=== PATIENT | male | born 1950 ===

== ENCOUNTER 2020-01-20 11:41 | Inpatient (IN) | payer MEDICARE, BC ==
[2020-01-20 19:12] VITALS: BP 128/74
[2020-01-21] MEDS: Potassium Chloride 10 mEq ER Tab PO SCH (10:52)
[2020-01-21] MEDS: Amoxicillin/Clavulanat 875/125 Tab PO SCH ×2 (10:52→16:44)
[2020-01-21] MEDS: Oxybutynin Chloride 5 mg ER Tab PO SCH (10:52)
--- NOTE | 2020-01-21 13:36 | History & Physical ---
ADMIT DATE: CHIEF COMPLAINT: Agitation. HISTORY OF PRESENT ILLNESS: We have a 69-year-old male with [place], history of DVT, PE, who is admitted for agitation. The patient is on anticoagulants for history of DVT and pulmonary embolism. The patient denies any chest pain, shortness of breath or nausea, vomiting, abdominal pain, diarrhea. PAST MEDICAL HISTORY: 1. Miroslava. 2. Pulmonary embolism/DVT. MEDICATIONS: List reviewed. ALLERGIES: None. SOCIAL HISTORY: Tobacco, IV drugs, ETOH negative. PHYSICAL EXAMINATION: VITAL SIGNS: Temperature is 98.6, pulse 70, respirations 20, blood pressure 128/74. HEENT: Normocephalic, atraumatic head exam. NECK: Supple. CARDIOVASCULAR: Regular rate and rhythm. LUNGS: Decreased breath sounds. ABDOMEN: Soft, nontender. EXTREMITIES: No edema, cyanosis, or clubbing. CN 2-12 grossly intact ASSESSMENT AND PLAN: 1. Miroslava's disease. 2. History of pulmonary embolism and deep venous thrombosis. 3. Agitation. The patient will continue with Xarelto 20 mg p.o. daily. We will get CBC, CMP, COVID testing. JOB# [id number] RUTHIE
[2020-01-21 15:00] LABS: HEMATOCRIT 42.4 % (36-54); HEMOGLOBIN 14.5 g/dL (14.0-18.0); MEAN CORPUSCULAR HEMOGLOBIN 30 pg (27-31); MEAN CORPUSCULAR HGB CONC 34 % (32-36); MEAN CORPUSCULAR VOLUME 86 fL (79.0-98.0); PLATELET COUNT 287 K/uL (130-430); RED BLOOD COUNT 4.91 MIL/uL (4.2-6.2); RED CELL DISTRIBUTION WIDTH 14.3 % (9.0-15.0); WHITE BLOOD COUNT 6.7 K/uL (4.8-10.8)
[2020-01-21 15:01] LABS: % NEUTROPHILS 63.3 % (40-70); BASOPHILS # (AUTO) 0.1 K/uL (0.0-0.2); BASOPHILS % (AUTO) 0.9 % (0.0-2.0); EOSINOPHILS # (AUTO) 0.1 K/uL (0.0-0.4); EOSINOPHILS % (AUTO) 1.2 % (0-4); LYMPHOCYTES # (AUTO) 1.5 K/uL (1.0-5.5); LYMPHOCYTES % (AUTO) 22.3 % (20.5-51.5); MONOCYTES # (AUTO) 0.8 K/uL (0.0-1.0); MONOCYTES % (AUTO) 12.3 % (1.7-9.3); NEUTROPHILS # (AUTO) 4.2 K/uL (1.8-7.7)
[2020-01-21 19:36] LABS: CALCIUM SERUM 8.8 mg/dL (8.4-10.2); CREATININE - SERUM 1.18 mg/dL (0.70-1.30); POTASSIUM SERUM 3.3 mmol/L (3.5-5.1); TOTAL PROTEIN,SERUM 7.3 g/dL (6.4-8.3)
[2020-01-21 19:37] LABS: BILIRUBIN,TOTAL 0.3 mg/dL (0.0-1.0)
[2020-01-21 22:07] LABS: CHOLESTEROL 206 mg/dL (<200); LDL CHOLESTEROL 133 mg/dL (0-129); TRIGLYCERIDES 112 mg/dL (30-150)
--- NOTE | 2020-01-21 22:46 | Psychiatric Evaluation ---
DATE OF SERVICE: 01/20/2020 IDENTIFYING INFORMATION: The patient is a 69-year-old male. CHIEF COMPLAINT: "I don't know." JUSTIFICATION FOR ADMISSION: The patient was admitted on a hold with danger to self. HISTORY OF PRESENT ILLNESS: The patient apparently was yelling, he was uncooperative, he was hitting staff. He was delusional, unable to make safe plan for self-care. He was believing that his is cristi and not a criminal. When I talked to the patient, he was a poor historian. He believes his name is Ryder Angelo. When asked how many years he is, he said "Several hundred years." The patient according to records was throwing items, he was throwing things, acting very dangerous. He pulled his IV pole, attacked staff members. The patient was not a very good historian. When I tried to ask him about these things, he did not know where he was. He believed that he is in [facility]. PAST PSYCHIATRIC HISTORY: According to the records, the patient is with a history of dementia, Erie's disease, unsteady gait. The patient's called 911 because of increased agitation and acting dangerous at home. The patient was a poor historian, unable to give much information, did not know the date, where he is, why he is here. PAST PSYCHIATRIC HISTORY: Asthma described before, dementia, delusions. He denies prior suicide attempts. He denies ever wanting to harm himself, he was a poor historian. MEDICAL HISTORY: Erie's disease. ALLERGIES: THE PATIENT IS ALLERGIC TO SEROQUEL. MEDICATIONS: The patient is on olanzapine 5 mg twice a day. He is on Xarelto, potassium, oxybutynin, ibuprofen, gabapentin 300 mg 3 times a day, Lasix, Calciferol, amoxicillin, deferred to the medical doctor rest of his medical condition. SOCIAL HISTORY: The patient was unable to tell me much about his family history, unable to tell me his age, the date, where he is, why he is here for anything about whether he uses alcohol or drugs or education. MENTAL STATUS EXAMINATION: The patient is appropriately dressed, not well groomed. He was alert. He was trying to be cooperative; however, he is delusional. He believes he is 89 years old and that he is Ryder Angelo. He could not tell me the date. He believes he is in [facility]. The patient reports hearing voices all the time and they tell him to say what to say and do, but denies that he wants to harm himself, but they tell him to harm himself. He reports he sleeps well. He eats well; however, he is not a good historian. He denies any homicidal ideation; however, he was throwing items, lifting items at the hospital and at home and called 911. He was unable to tell me the president practicing urologist. He is demented, confused. Long-term memory is poor, cannot tell me his age. Short-term memory is poor. He is not sure of the events that led to this admission. Concentration is poor, unable to answer questions, depressed. Insight about his illness is poor, does not realize what problem he has. Judgment is poor with his acting out behavior. IMPRESSION: Dementia with behavior disturbances; psychosis, not otherwise specified, rule out bipolar disorder. MEDICAL DIAGNOSES: Erie disease, hypertension, benign prostatic hypertrophy. ASSETS: He is accepting treatment. Negative poor coping skills. INITIAL TREATMENT PLAN: The patient will be continued with olanzapine 5 mg twice a day. We will do group therapy, milieu therapy, and individual therapy. ESTIMATED LENGTH OF STAY: 3-7 days. DISCHARGE CRITERIA: Decrease agitation, no longer aggressive. After discharge outpatient treatment. JOB# [id number] RUTHIE
[2020-01-22 08:07] LABS: A1C 5.3 % (4.8-5.6)
[2020-01-22] MEDS: Potassium Chloride 10 mEq ER Tab PO SCH (09:07)
[2020-01-22] MEDS: Amoxicillin/Clavulanat 875/125 Tab PO SCH ×3 (09:07→16:48)
[2020-01-22] MEDS: Oxybutynin Chloride 5 mg ER Tab PO SCH (09:08)
[2020-01-22] MEDS ORDERED: OLANZAPINE PO SCH (10:00)
--- NOTE | 2020-01-22 14:00 | Progress Notes ---
DATE: 01/22/2020 Case was discussed with staff of the patient, reviewed records. The patient continues to be confused, delusional, not making sense. He believes he is 100s of years old that he is Ryder Angelo, unpredictable, impulsive. He believes his is a mafia and criminal. He continues to be unable to make safe plan for self-care. No side effects with the medication, no sedation, no nausea, no extrapyramidal symptoms. I will be increasing his olanzapine to 7.5 mg twice a day with the help with his confusion, paranoia, delusional behavior, aggressive behavior. We will continue outpatient group therapy, milieu therapy, adjust medication as needed. [facility]# [id number]
--- NOTE | 2020-01-22 14:17 | Internal Medicine Prog Note ---
Internal Medicine Subjective - Subjective Service Date: 01/22/20 Patient seen and examined:: without staff Patient is:: awake Per staff patient has:: no adverse event, no episodes of fall Internal Medicine Objective - Results Result Diagrams: 01/21/20 13:15 01/21/20 13:15 Recent Labs: Laboratory Last Values WBC 6.7 K/uL (4.8-10.8) 01/21/20 13:15 RBC 4.91 MIL/uL (4.2-6.2) 01/21/20 13:15 Hgb 14.5 g/dL (14.0-18.0) 01/21/20 13:15 Hct 42.4 % (36-54) 01/21/20 13:15 MCV 86 fL (79.0-98.0) 01/21/20 13:15 MCH 30 pg (27-31) 01/21/20 13:15 MCHC 34 % (32-36) 01/21/20 13:15 RDW 14.3 % (9.0-15.0) 01/21/20 13:15 Plt Count 287 K/uL (130-430) 01/21/20 13:15 MPV 9.0 fl (7.4-10.4) 01/21/20 13:15 Neut % (Auto) 63.3 % (40-70) 01/21/20 13:15 Lymph % (Auto) 22.3 % (20.5-51.5) 01/21/20 13:15 Bureau % (Auto) 12.3 % (1.7-9.3) H 01/21/20 13:15 Eos % (Auto) 1.2 % (0-4) 01/21/20 13:15 Baso % (Auto) 0.9 % (0.0-2.0) 01/21/20 13:15 Neut # (Auto) 4.2 K/uL (1.8-7.7) 01/21/20 13:15 Lymph # (Auto) 1.5 K/uL (1.0-5.5) 01/21/20 13:15 Bureau # (Auto) 0.8 K/uL (0.0-1.0) 01/21/20 13:15 Eos # (Auto) 0.1 K/uL (0.0-0.4) 01/21/20 13:15 Baso # (Auto) 0.1 K/uL (0.0-0.2) 01/21/20 13:15 Sodium 137 mmol/L (136-145) 01/21/20 13:15 Potassium 3.3 mmol/L (3.5-5.1) L 01/21/20 13:15 Chloride 108 mmol/L (98-107) H 01/21/20 13:15 Carbon Dioxide 26 mmol/L (23-29) 01/21/20 13:15 Anion Gap 6 (5-15) 01/21/20 13:15 BUN 26 mg/dL (8-21) H 01/21/20 13:15 Creatinine 1.18 mg/dL (0.70-1.30) 01/21/20 13:15 Glucose 93 mg/dL (70-99) 01/21/20 13:15 Hemoglobin A1c 5.3 % (4.8-5.6) 01/21/20 13:15 Calcium 8.8 mg/dL (8.4-10.2) 01/21/20 13:15 Total Bilirubin 0.3 mg/dL (0.0-1.0) 01/21/20 13:15 AST 27 U/L (10-37) 01/21/20 13:15 ALT 23 U/L (12-78) 01/21/20 13:15 Alkaline Phosphatase 95 U/L (46-116) 01/21/20 13:15 Total Protein 7.3 g/dL (6.4-8.3) 01/21/20 13:15 Albumin 3.2 g/dL (3.4-5.0) L 01/21/20 13:15 Triglycerides 112 mg/dL (30-150) 01/21/20 13:15 Cholesterol 206 mg/dL (<200) H 01/21/20 13:15 LDL Cholesterol 133 mg/dL (0-129) H 01/21/20 13:15 HDL Cholesterol 57 mg/dL (>45) 01/21/20 13:15 - Physical Exam Vitals and I&O: Vital Signs Temp 97 F 01/21/20 20:00 Pulse 65 01/21/20 20:00 Resp 19 01/21/20 20:00 BP 105/60 01/21/20 20:00 Pulse Ox 94 01/21/20 20:00 Intake & Output 01/21/20 01/22/20 01/22/20 18:59 06:59 18:59 Intake Total 680 120 Balance 680 120 Intake: Oral 680 120 Other: # Voids 3 3 # Bowel Movements 0 Active Medications: Current Medications Amoxicillin/Clavulanate Potassium (Augmentin 875-125mg) 1 tab PO BID [facility] Stop: 01/25/20 08:59 Last Admin: 01/22/20 09:07 Dose: 1 tab Cholecalciferol (Vitamin D3) 1,000 iu PO DAILY [facility] Stop: 03/21/20 08:59 Last Admin: 01/22/20 09:07 Dose: 1,000 iu Furosemide (Lasix) 20 mg PO DAILY [facility] Stop: 03/21/20 08:59 Last Admin: 01/22/20 09:22 Dose: Not Given Gabapentin (Neurontin) 300 mg PO TID [facility] Stop: 03/21/20 08:59 Last Admin: 01/22/20 13:45 Dose: Not Given Ibuprofen (Motrin) 600 mg PO Q4H PRN PRN Reason: Pain (Severe 7-10) Stop: 03/20/20 21:39 Lorazepam (Ativan) 2 mg PO BID PRN; Protocol PRN Reason: Agitation Stop: 02/19/20 21:39 Olanzapine 5 mg/ Olanzapine 2. (5 mg) 7.5 mg PO BID [facility] Stop: 03/22/20 09:59 Oxybutynin Chloride (Ditropan Xl) 10 mg PO DAILY [facility] Stop: 03/21/20 08:59 Last Admin: 01/22/20 09:08 Dose: 10 mg Potassium Chloride (Klor-Con) 10 meq PO DAILY [facility] Stop: 03/21/20 08:59 Last Admin: 01/22/20 09:07 Dose: 10 meq Rivaroxaban (Xarelto) 20 mg PO DAILY [facility] Stop: 03/21/20 08:59 Last Admin: 01/22/20 09:07 Dose: 20 mg General: weak HEENT: NC/AT, PERRLA Neck: Supple Lungs: CTAB Cardiovascular: RRR, Normal S1, Normal S2 Abdomen: soft Extremities: clear Internal Medicine Assmt/Plan - Assessment Assessment: 1. [place]'s 2. HTN 3. Hx of P.E. and DVT - Plan Plan: continue xeralto 20 mg po daily d/w r.n. reviewed complete medical records
[2020-01-23] MEDS: Amoxicillin/Clavulanat 875/125 Tab PO SCH ×2 (08:44→16:04)
[2020-01-23] MEDS: Potassium Chloride 10 mEq ER Tab PO SCH (08:45)
[2020-01-23] MEDS: Oxybutynin Chloride 5 mg ER Tab PO SCH (08:45)
--- NOTE | 2020-01-23 11:23 | Progress Notes ---
DATE: 01/23/2020 SUBJECTIVE: Case was discussed with staff of the patient, reviewed records. The patient has been at times refusing medication. Continues to have poor insight, continues to be unpredictable, impulsive, needing redirection. Continues to have poor insight. The patient has been on Zyprexa and I increased the dose yesterday to 7.5 mg twice a day. The patient continues to be psychotic, unpredictable, impulsive, needing redirection. No side effects with the medication, no sedation, no nausea, no extrapyramidal symptoms. We will continue outpatient group therapy, milieu therapy, and adjust medication as needed. JOB# [id number]
[2020-01-24] MEDS: Amoxicillin/Clavulanat 875/125 Tab PO SCH ×2 (08:33→16:34)
[2020-01-24] MEDS: Potassium Chloride 10 mEq ER Tab PO SCH (08:34)
[2020-01-24] MEDS: Oxybutynin Chloride 5 mg ER Tab PO SCH (08:34)
--- NOTE | 2020-01-24 14:29 | Internal Medicine Prog Note ---
Internal Medicine Subjective - Subjective Service Date: 01/24/20 Patient seen and examined:: without staff Patient is:: awake Per staff patient has:: no adverse event, no episodes of fall Internal Medicine Objective - Results Result Diagrams: 01/21/20 13:15 01/21/20 13:15 Recent Labs: Laboratory Last Values WBC 6.7 K/uL (4.8-10.8) 01/21/20 13:15 RBC 4.91 MIL/uL (4.2-6.2) 01/21/20 13:15 Hgb 14.5 g/dL (14.0-18.0) 01/21/20 13:15 Hct 42.4 % (36-54) 01/21/20 13:15 MCV 86 fL (79.0-98.0) 01/21/20 13:15 MCH 30 pg (27-31) 01/21/20 13:15 MCHC 34 % (32-36) 01/21/20 13:15 RDW 14.3 % (9.0-15.0) 01/21/20 13:15 Plt Count 287 K/uL (130-430) 01/21/20 13:15 MPV 9.0 fl (7.4-10.4) 01/21/20 13:15 Neut % (Auto) 63.3 % (40-70) 01/21/20 13:15 Lymph % (Auto) 22.3 % (20.5-51.5) 01/21/20 13:15 [place] % (Auto) 12.3 % (1.7-9.3) H 01/21/20 13:15 Eos % (Auto) 1.2 % (0-4) 01/21/20 13:15 Baso % (Auto) 0.9 % (0.0-2.0) 01/21/20 13:15 Neut # (Auto) 4.2 K/uL (1.8-7.7) 01/21/20 13:15 Lymph # (Auto) 1.5 K/uL (1.0-5.5) 01/21/20 13:15 [place] # (Auto) 0.8 K/uL (0.0-1.0) 01/21/20 13:15 Eos # (Auto) 0.1 K/uL (0.0-0.4) 01/21/20 13:15 Baso # (Auto) 0.1 K/uL (0.0-0.2) 01/21/20 13:15 Sodium 137 mmol/L (136-145) 01/21/20 13:15 Potassium 3.3 mmol/L (3.5-5.1) L 01/21/20 13:15 Chloride 108 mmol/L (98-107) H 01/21/20 13:15 Carbon Dioxide 26 mmol/L (23-29) 01/21/20 13:15 Anion Gap 6 (5-15) 01/21/20 13:15 BUN 26 mg/dL (8-21) H 01/21/20 13:15 Creatinine 1.18 mg/dL (0.70-1.30) 01/21/20 13:15 Glucose 93 mg/dL (70-99) 01/21/20 13:15 Hemoglobin A1c 5.3 % (4.8-5.6) 01/21/20 13:15 Calcium 8.8 mg/dL (8.4-10.2) 01/21/20 13:15 Total Bilirubin 0.3 mg/dL (0.0-1.0) 01/21/20 13:15 AST 27 U/L (10-37) 01/21/20 13:15 ALT 23 U/L (12-78) 01/21/20 13:15 Alkaline Phosphatase 95 U/L (46-116) 01/21/20 13:15 Total Protein 7.3 g/dL (6.4-8.3) 01/21/20 13:15 Albumin 3.2 g/dL (3.4-5.0) L 01/21/20 13:15 Triglycerides 112 mg/dL (30-150) 01/21/20 13:15 Cholesterol 206 mg/dL (<200) H 01/21/20 13:15 LDL Cholesterol 133 mg/dL (0-129) H 01/21/20 13:15 HDL Cholesterol 57 mg/dL (>45) 01/21/20 13:15 - Physical Exam Vitals and I&O: Vital Signs Temp 97 F 01/24/20 05:58 Pulse 62 01/24/20 05:58 Resp 16 01/24/20 08:00 BP 153/65 01/24/20 08:35 Pulse Ox 95 01/24/20 05:58 Intake & Output 01/23/20 01/24/20 01/24/20 18:59 06:59 18:59 Intake Total 1200 240 Balance 1200 240 Intake: Oral 1200 240 Other: # Voids 1 # Bowel Movements 1 Active Medications: Current Medications Amoxicillin/Clavulanate Potassium (Augmentin 875-125mg) 1 tab PO BID [facility] Stop: 01/25/20 08:59 Last Admin: 01/24/20 08:33 Dose: 1 tab Cholecalciferol (Vitamin D3) 1,000 iu PO DAILY [facility] Stop: 03/21/20 08:59 Last Admin: 01/24/20 08:33 Dose: 1,000 iu Furosemide (Lasix) 20 mg PO DAILY [facility] Stop: 03/21/20 08:59 Last Admin: 01/24/20 08:35 Dose: 20 mg Gabapentin (Neurontin) 300 mg PO TID [facility] Stop: 03/21/20 08:59 Last Admin: 01/24/20 08:35 Dose: 300 mg Ibuprofen (Motrin) 600 mg PO Q4H PRN PRN Reason: Pain (Severe 7-10) Stop: 03/20/20 21:39 Lorazepam 1 mg/ Lorazepam 0.5 (mg) 1.5 mg PO BID PRN PRN Reason: AGITATION Stop: 03/23/20 11:39 Olanzapine 5 mg/ Olanzapine 2. (5 mg) 7.5 mg PO BID [facility] Stop: 03/22/20 09:59 Last Admin: 01/24/20 08:34 Dose: 7.5 mg Oxybutynin Chloride (Ditropan Xl) 10 mg PO DAILY [facility] Stop: 03/21/20 08:59 Last Admin: 01/24/20 08:34 Dose: 10 mg Potassium Chloride (Klor-Con) 10 meq PO DAILY [facility] Stop: 03/21/20 08:59 Last Admin: 01/24/20 08:34 Dose: 10 meq Rivaroxaban (Xarelto) 20 mg PO DAILY [facility] Stop: 03/21/20 08:59 Last Admin: 01/24/20 08:34 Dose: 20 mg General: weak HEENT: NC/AT, PERRLA Neck: Supple Lungs: CTAB Cardiovascular: RRR, Normal S1, Normal S2 Abdomen: soft Extremities: clear Neurological: no change Internal Medicine Assmt/Plan - Assessment Assessment: 1. [place]'s 2. HTN 3. Hx of P.E. and DVT - Plan Plan: continue xeralto 20 mg po daily d/w r.n. reviewed complete medical records
--- NOTE | 2020-01-24 16:50 | Progress Notes ---
DATE: 01/24/2020 Case was discussed with staff of the patient, reviewed records. The patient continues to stay in bed, continues to be delusional. Continues to have poor insight, confused, unable to make safe plan for his self-care. He has been compliant with the medication with no side effects, no sedation, no nausea, no extrapyramidal symptoms. I did increase his olanzapine to 7.5 mg twice a day with no side effects and he is still unable to make safe plan for his self-care. _ he believes he is Ryder Angelo. He is hundreds of years old. We will continue outpatient group therapy, milieu therapy, and adjust the medications as needed. JOB# [id number] RUTHIE
[2020-01-25] MEDS: Potassium Chloride 10 mEq ER Tab PO SCH (09:43)
[2020-01-25] MEDS: Oxybutynin Chloride 5 mg ER Tab PO SCH (09:43)
--- NOTE | 2020-01-25 13:48 | Progress Notes ---
DATE: 01/25/2020 Covering for Jina Toledo MD SUBJECTIVE: The patient was interviewed. Case was discussed with staff. Chart and records were reviewed. Per the staff, the patient has been gradually improving, less depressed, and no behavioral issues. The patient, however, does stay in bed most of the day. He continues to have thought disorganization. Also, appears to be with poor self-care and needs significant prompting. The patient this afternoon was lying in bed, sleeping, did not want to awake for the interview. I attempted to wake the patient for the interview, but he would quickly fall back asleep and not want to cooperate. MENTAL STATUS EXAMINATION: The patient is sleeping in the hospital bed, turned away from this provider. Awakes to his name, but quickly falls back asleep. Speech remained selectively mute, otherwise unable to assess due to his poor cooperation. ASSESSMENT AND PLAN: We will continue the patient's acute psychiatric hospitalization. We will continue his current medications as prescribed. We will monitor for side effects and for behaviors and improvement. We will also encourage the patient to verbalize his needs and participate in group and milieu therapy. JOB# [id number]
[2020-01-26] MEDS: Oxybutynin Chloride 5 mg ER Tab PO SCH (09:05)
[2020-01-26] MEDS: Potassium Chloride 10 mEq ER Tab PO SCH (09:06)
[2020-01-27] MEDS: Oxybutynin Chloride 5 mg ER Tab PO SCH (08:26)
[2020-01-27] MEDS: Potassium Chloride 10 mEq ER Tab PO SCH (08:26)
--- NOTE | 2020-01-27 23:01 | Psych Progress Note ---
Psych Progress Note - Intro Date of Progress Note: 01/27/20 - Assessment Assessment: patient more awake today seen in dayroom. able to state his name, , where he is "Billy!" and wifes name. He is not making bizarre comments. tolerating Zyprexa well with no side effects. hygiene improving. - Vitals, I&O Vitals: Vital Signs - 24 hr 01/27/20 01/27/20 01/27/20 06:17 08:27 15:06 Temp 97.1 F 97.0 F HR 59 78 RR 19 20 BP 122/74 122/74 127/91 O2 Sat % 95 94 01/27/20 01/27/20 19:52 20:50 Temp 97.6 F HR 65 RR 20 18 BP 107/62 O2 Sat % 95 - Objective Psych General Appearance: Report: No acute distress Psych Behavior: Report: Alert Psych Speech: Report: Mumbled Psych Mood: Report: Euthymic Psych Affect: Report: Blunted Psych Insight: Report: Impaired Psych Judgement: Report: Impaired - Plan Plan: cont meds - Review of Relevant Data Review of Relevant Data: I have reviewed the following items and time anneliese (where applicable) has been applied. - Medications Current Medications: Current Medications Cholecalciferol (Vitamin D3) 1,000 iu PO DAILY [facility] Stop: 03/21/20 08:59 Last Admin: 01/27/20 08:25 Dose: 1,000 iu Furosemide (Lasix) 20 mg PO DAILY [facility] Stop: 03/21/20 08:59 Last Admin: 01/27/20 08:27 Dose: 20 mg Gabapentin (Neurontin) 100 mg PO TID [facility] Stop: 03/26/20 20:59 Last Admin: 01/27/20 20:58 Dose: 100 mg Ibuprofen (Motrin) 600 mg PO Q4H PRN PRN Reason: Pain (Severe 7-10) Stop: 03/20/20 21:39 Lorazepam 1 mg/ Lorazepam 0.5 (mg) 1.5 mg PO BID PRN PRN Reason: AGITATION Stop: 03/23/20 11:39 Olanzapine (Zyprexa) 10 mg PO HS [facility] Stop: 03/27/20 20:59 Last Admin: 01/27/20 20:58 Dose: 10 mg Oxybutynin Chloride (Ditropan Xl) 10 mg PO DAILY [facility] Stop: 03/21/20 08:59 Last Admin: 01/27/20 08:26 Dose: 10 mg Potassium Chloride (Klor-Con) 10 meq PO DAILY [facility] Stop: 03/21/20 08:59 Last Admin: 01/27/20 08:26 Dose: 10 meq Rivaroxaban (Xarelto) 20 mg PO DAILY [facility] Stop: 03/21/20 08:59 Last Admin: 01/27/20 08:25 Dose: 20 mg
--- NOTE | 2020-01-27 23:01 | Psych Progress Note ---
Psych Progress Note - Intro Date of Progress Note: 01/26/20 - Assessment Assessment: spoke with patient's she is concerned of patient's mental status reports his confusion is not improving and he is tired. per nursing staff, patient has been sleeping most of the day but when awake needs prompting for self care and also making bizarre statements of wanting to go surfing. patietn did not participate in interview wanted to sleep. - Vitals, I&O Vitals: Vital Signs - 24 hr 01/27/20 01/27/20 01/27/20 06:17 08:27 15:06 Temp 97.1 F 97.0 F HR 59 78 RR 19 20 BP 122/74 122/74 127/91 O2 Sat % 95 94 01/27/20 01/27/20 19:52 20:50 Temp 97.6 F HR 65 RR 20 18 BP 107/62 O2 Sat % 95 - Objective Psych General Appearance: Report: Disheveled, No eye-contact Psych Behavior: Report: Uncooperative Psych Mood: Report: Anxious Psych Affect: Report: Blunted Psych Cognition: Report: Confused Psych Insight: Report: Impaired Psych Judgement: Report: Impaired - Plan Plan: will consolidate Zyprexa dosing to bedtime to help with daytime sedation. - Review of Relevant Data Review of Relevant Data: I have reviewed the following items and time anneliese (where applicable) has been applied. - Medications Current Medications: Current Medications Cholecalciferol (Vitamin D3) 1,000 iu PO DAILY [facility] Stop: 03/21/20 08:59 Last Admin: 01/27/20 08:25 Dose: 1,000 iu Furosemide (Lasix) 20 mg PO DAILY [facility] Stop: 03/21/20 08:59 Last Admin: 01/27/20 08:27 Dose: 20 mg Gabapentin (Neurontin) 100 mg PO TID [facility] Stop: 03/26/20 20:59 Last Admin: 01/27/20 20:58 Dose: 100 mg Ibuprofen (Motrin) 600 mg PO Q4H PRN PRN Reason: Pain (Severe 7-10) Stop: 03/20/20 21:39 Lorazepam 1 mg/ Lorazepam 0.5 (mg) 1.5 mg PO BID PRN PRN Reason: AGITATION Stop: 03/23/20 11:39 Olanzapine (Zyprexa) 10 mg PO HS [facility] Stop: 03/27/20 20:59 Last Admin: 01/27/20 20:58 Dose: 10 mg Oxybutynin Chloride (Ditropan Xl) 10 mg PO DAILY [facility] Stop: 03/21/20 08:59 Last Admin: 01/27/20 08:26 Dose: 10 mg Potassium Chloride (Klor-Con) 10 meq PO DAILY [facility] Stop: 03/21/20 08:59 Last Admin: 01/27/20 08:26 Dose: 10 meq Rivaroxaban (Xarelto) 20 mg PO DAILY [facility] Stop: 03/21/20 08:59 Last Admin: 01/27/20 08:25 Dose: 20 mg
[2020-01-28] MEDS: Potassium Chloride 10 mEq ER Tab PO SCH (08:14)
[2020-01-28] MEDS: Oxybutynin Chloride 5 mg ER Tab PO SCH (08:14)
--- NOTE | 2020-01-28 19:06 | Internal Medicine Prog Note ---
Internal Medicine Subjective - Subjective Service Date: 01/28/20 (Late entry) Patient seen and examined:: without staff (no fevers no cough no chest pain no sob) Patient is:: awake Per staff patient has:: no adverse event, no episodes of fall Internal Medicine Objective - Results Result Diagrams: 01/21/20 13:15 01/21/20 13:15 Recent Labs: Laboratory Last Values WBC 6.7 K/uL (4.8-10.8) 01/21/20 13:15 RBC 4.91 MIL/uL (4.2-6.2) 01/21/20 13:15 Hgb 14.5 g/dL (14.0-18.0) 01/21/20 13:15 Hct 42.4 % (36-54) 01/21/20 13:15 MCV 86 fL (79.0-98.0) 01/21/20 13:15 MCH 30 pg (27-31) 01/21/20 13:15 MCHC 34 % (32-36) 01/21/20 13:15 RDW 14.3 % (9.0-15.0) 01/21/20 13:15 Plt Count 287 K/uL (130-430) 01/21/20 13:15 MPV 9.0 fl (7.4-10.4) 01/21/20 13:15 Neut % (Auto) 63.3 % (40-70) 01/21/20 13:15 Lymph % (Auto) 22.3 % (20.5-51.5) 01/21/20 13:15 [place] % (Auto) 12.3 % (1.7-9.3) H 01/21/20 13:15 Eos % (Auto) 1.2 % (0-4) 01/21/20 13:15 Baso % (Auto) 0.9 % (0.0-2.0) 01/21/20 13:15 Neut # (Auto) 4.2 K/uL (1.8-7.7) 01/21/20 13:15 Lymph # (Auto) 1.5 K/uL (1.0-5.5) 01/21/20 13:15 [place] # (Auto) 0.8 K/uL (0.0-1.0) 01/21/20 13:15 Eos # (Auto) 0.1 K/uL (0.0-0.4) 01/21/20 13:15 Baso # (Auto) 0.1 K/uL (0.0-0.2) 01/21/20 13:15 Sodium 137 mmol/L (136-145) 01/21/20 13:15 Potassium 3.3 mmol/L (3.5-5.1) L 01/21/20 13:15 Chloride 108 mmol/L (98-107) H 01/21/20 13:15 Carbon Dioxide 26 mmol/L (23-29) 01/21/20 13:15 Anion Gap 6 (5-15) 01/21/20 13:15 BUN 26 mg/dL (8-21) H 01/21/20 13:15 Creatinine 1.18 mg/dL (0.70-1.30) 01/21/20 13:15 Glucose 93 mg/dL (70-99) 01/21/20 13:15 Hemoglobin A1c 5.3 % (4.8-5.6) 01/21/20 13:15 Calcium 8.8 mg/dL (8.4-10.2) 01/21/20 13:15 Total Bilirubin 0.3 mg/dL (0.0-1.0) 01/21/20 13:15 AST 27 U/L (10-37) 01/21/20 13:15 ALT 23 U/L (12-78) 01/21/20 13:15 Alkaline Phosphatase 95 U/L (46-116) 01/21/20 13:15 Total Protein 7.3 g/dL (6.4-8.3) 01/21/20 13:15 Albumin 3.2 g/dL (3.4-5.0) L 01/21/20 13:15 Triglycerides 112 mg/dL (30-150) 01/21/20 13:15 Cholesterol 206 mg/dL (<200) H 01/21/20 13:15 LDL Cholesterol 133 mg/dL (0-129) H 01/21/20 13:15 HDL Cholesterol 57 mg/dL (>45) 01/21/20 13:15 - Physical Exam Vitals and I&O: Vital Signs Temp 97.6 F 01/28/20 14:41 Pulse 64 01/28/20 14:41 Resp 20 01/28/20 14:41 BP 136/80 01/28/20 14:41 Pulse Ox 95 01/28/20 14:41 Intake & Output 01/28/20 01/28/20 01/29/20 06:59 18:59 06:59 Intake Total 240 Output Total 480 Balance -240 Intake: Oral 240 Output: Urine 480 Active Medications: Current Medications Cholecalciferol (Vitamin D3) 1,000 iu PO DAILY [facility] Stop: 03/21/20 08:59 Last Admin: 01/28/20 08:13 Dose: 1,000 iu Furosemide (Lasix) 20 mg PO DAILY [facility] Stop: 03/21/20 08:59 Last Admin: 01/28/20 08:13 Dose: 20 mg Gabapentin (Neurontin) 100 mg PO TID [facility] Stop: 03/26/20 20:59 Last Admin: 01/28/20 14:17 Dose: 100 mg Ibuprofen (Motrin) 600 mg PO Q4H PRN PRN Reason: Pain (Severe 7-10) Stop: 03/20/20 21:39 Lorazepam 1 mg/ Lorazepam 0.5 (mg) 1.5 mg PO BID PRN PRN Reason: AGITATION Stop: 03/23/20 11:39 Olanzapine (Zyprexa) 10 mg PO HS [facility] Stop: 03/27/20 20:59 Last Admin: 01/27/20 20:58 Dose: 10 mg Oxybutynin Chloride (Ditropan Xl) 10 mg PO DAILY [facility] Stop: 03/21/20 08:59 Last Admin: 01/28/20 08:14 Dose: 10 mg Potassium Chloride (Klor-Con) 10 meq PO DAILY [facility] Stop: 03/21/20 08:59 Last Admin: 01/28/20 08:14 Dose: 10 meq Rivaroxaban (Xarelto) 20 mg PO DAILY [facility] Stop: 03/21/20 08:59 Last Admin: 01/28/20 08:14 Dose: 20 mg General: weak HEENT: NC/AT, PERRLA Neck: Supple Lungs: CTAB Cardiovascular: RRR, Normal S1, Normal S2 Abdomen: soft Extremities: clear Neurological: no change Internal Medicine Assmt/Plan - Assessment Assessment: 1. [place] 2. HTN 3. Hx of P.E. and DVT - Plan Plan: continue xeralto 20 mg po daily d/w r.n. reviewed complete medical records Nutritional Asmnt/Malnutr-PDOC - Dietary Evaluation Malnutrition Findings (Please click <Entered> for more info): Nutritional Asmnt/Malnutrition Start: 01/26/20 12: 42 Text: Status: Complete Freq: Protocol: Document 01/26/20 12:42 MARLENYDEVI (Rec: 01/26/20 12:51 [email or web address]- [id number]) Nutritional Asmnt/Malnutrition Patient General Information Nutritional Screening Low Risk Diagnosis Psychosis Pertinent Medical Hx/Surgical Hx [place], Pulmonary embolism /DVT Subjective Information FNS providing patient with ~ 2300 kcal, 110gm protein; patient eating average 90% of meals, 2070 kcal, 99gm protein /day meeting 98% kcal, >100 protein goals. Tolerating current diet order with adequate intake. Current Diet Order/ Nutrition Support Regular Patient / S.O Not Indicated Pertinent Medications Vitamin D, lasix, Klor-con Pertinent Labs (01/20) K 3.3, Albumin 3.2, Cholesterol 206, LDL 133 Nutritional Hx/Data Height 1.8 m Height (Calculated Centimeters) 180.3 Current Weight (lbs) 99.79 kg Weight (Calculated Kilograms) 99.8 Weight (Calculated Grams) 08649.3 [place] Body Weight 172 % [place] Body Weight 128 Body Mass Index (BMI) 30.7 Recent Weight Change No Weight Status Obese GI Symptoms GI Symptoms None Last BM 01/23 x 1 Difficult in: None Food Allergies No Cultural/Ethnic/Anabaptist Belief none indicated Usual diet at home unknown Skin Integrity/Comment: Aman 13, intact Current %PO Good (75-100%) Estimated Nutritional Goals BEE in Kcals: Adj wt of IBW Calories/Kcals/Kg ADj BW 83.6kg Kcals Calculated ~8281-9119 kcal/day (25-30 kcal/kg) Protein: Adj wt of IBW Protein g/kg: (1 gm/kg) Protein Calculated ~85 gm/day Fluid: ml ~1070-3534 ml/day (1 ml/kcal) Nutritional Problem 1. Problem Problem Altered nutrition related lab values realted to Etiology electrolyte imbalance aeb Signs/Symptoms: K 3.3 Intervention/Recommendation Comments 1. Continue regular diet as tolerated by patient. Encourage intake of high potassium foods (tomatoes, potatoes, oranges/OJ, bananas, etc). MD continue replace K as needed. Expected Outcomes/Goals Expected Outcomes/Goals Oral intake >75% of meals, weight stable or trend toward IBW, nutrition related labs WNL F/U MR 01/28-01/30
--- NOTE | 2020-01-28 20:56 | Progress Notes ---
DATE: 01/28/2020 Case was discussed with staff of the patient and reviewed records. The patient continues to stay in bed in general. He is taking medication. He continues to have poor insight. He seems to be making bizarre comments less often. He continues to have poor hygiene, unable to care for his ADLs, and needs prompting. No side effects to the medication, no sedation, no nausea, and no extrapyramidal symptoms. We will continue to work with the patient in group therapy, milieu therapy, and adjust medication as needed. JOB# [id number]
[2020-01-29] MEDS: LORAZEPAM PO PRN (02:46)
[2020-01-29] MEDS: Potassium Chloride 10 mEq ER Tab PO SCH (08:33)
[2020-01-29] MEDS: Oxybutynin Chloride 5 mg ER Tab PO SCH (08:33)
--- NOTE | 2020-01-29 14:25 | Internal Medicine Prog Note ---
Internal Medicine Subjective - Subjective Service Date: 01/29/20 Patient seen and examined:: without staff (no fevers no cough no sob) Patient is:: awake, asleep Per staff patient has:: no adverse event, no episodes of fall Internal Medicine Objective - Results Result Diagrams: 01/21/20 13:15 01/21/20 13:15 Recent Labs: Laboratory Last Values WBC 6.7 K/uL (4.8-10.8) 01/21/20 13:15 RBC 4.91 MIL/uL (4.2-6.2) 01/21/20 13:15 Hgb 14.5 g/dL (14.0-18.0) 01/21/20 13:15 Hct 42.4 % (36-54) 01/21/20 13:15 MCV 86 fL (79.0-98.0) 01/21/20 13:15 MCH 30 pg (27-31) 01/21/20 13:15 MCHC 34 % (32-36) 01/21/20 13:15 RDW 14.3 % (9.0-15.0) 01/21/20 13:15 Plt Count 287 K/uL (130-430) 01/21/20 13:15 MPV 9.0 fl (7.4-10.4) 01/21/20 13:15 Neut % (Auto) 63.3 % (40-70) 01/21/20 13:15 Lymph % (Auto) 22.3 % (20.5-51.5) 01/21/20 13:15 [place] % (Auto) 12.3 % (1.7-9.3) H 01/21/20 13:15 Eos % (Auto) 1.2 % (0-4) 01/21/20 13:15 Baso % (Auto) 0.9 % (0.0-2.0) 01/21/20 13:15 Neut # (Auto) 4.2 K/uL (1.8-7.7) 01/21/20 13:15 Lymph # (Auto) 1.5 K/uL (1.0-5.5) 01/21/20 13:15 [place] # (Auto) 0.8 K/uL (0.0-1.0) 01/21/20 13:15 Eos # (Auto) 0.1 K/uL (0.0-0.4) 01/21/20 13:15 Baso # (Auto) 0.1 K/uL (0.0-0.2) 01/21/20 13:15 Sodium 137 mmol/L (136-145) 01/21/20 13:15 Potassium 3.3 mmol/L (3.5-5.1) L 01/21/20 13:15 Chloride 108 mmol/L (98-107) H 01/21/20 13:15 Carbon Dioxide 26 mmol/L (23-29) 01/21/20 13:15 Anion Gap 6 (5-15) 01/21/20 13:15 BUN 26 mg/dL (8-21) H 01/21/20 13:15 Creatinine 1.18 mg/dL (0.70-1.30) 01/21/20 13:15 Glucose 93 mg/dL (70-99) 01/21/20 13:15 Hemoglobin A1c 5.3 % (4.8-5.6) 01/21/20 13:15 Calcium 8.8 mg/dL (8.4-10.2) 01/21/20 13:15 Total Bilirubin 0.3 mg/dL (0.0-1.0) 01/21/20 13:15 AST 27 U/L (10-37) 01/21/20 13:15 ALT 23 U/L (12-78) 01/21/20 13:15 Alkaline Phosphatase 95 U/L (46-116) 01/21/20 13:15 Total Protein 7.3 g/dL (6.4-8.3) 01/21/20 13:15 Albumin 3.2 g/dL (3.4-5.0) L 01/21/20 13:15 Triglycerides 112 mg/dL (30-150) 01/21/20 13:15 Cholesterol 206 mg/dL (<200) H 01/21/20 13:15 LDL Cholesterol 133 mg/dL (0-129) H 01/21/20 13:15 HDL Cholesterol 57 mg/dL (>45) 01/21/20 13:15 - Physical Exam Vitals and I&O: Vital Signs Temp 97.0 F 01/29/20 06:24 Pulse 61 01/29/20 06:24 Resp 18 01/29/20 06:24 BP 131/96 01/29/20 08:31 Pulse Ox 98 01/29/20 06:24 Intake & Output 01/28/20 01/29/20 01/29/20 18:59 06:59 18:59 Intake Total 240 Balance 240 Intake: Oral 240 Other: # Voids 1 Active Medications: Current Medications Cholecalciferol (Vitamin D3) 1,000 iu PO DAILY [facility] Stop: 03/21/20 08:59 Last Admin: 01/29/20 08:33 Dose: 1,000 iu Furosemide (Lasix) 20 mg PO DAILY [facility] Stop: 03/21/20 08:59 Last Admin: 01/29/20 08:31 Dose: 20 mg Gabapentin (Neurontin) 100 mg PO TID [facility] Stop: 03/26/20 20:59 Last Admin: 01/29/20 13:42 Dose: 100 mg Ibuprofen (Motrin) 600 mg PO Q4H PRN PRN Reason: Pain (Severe 7-10) Stop: 03/20/20 21:39 Last Admin: 01/29/20 13:42 Dose: 600 mg Lorazepam 1 mg/ Lorazepam 0.5 (mg) 1.5 mg PO BID PRN PRN Reason: AGITATION Stop: 03/23/20 11:39 Last Admin: 01/29/20 02:46 Dose: 1.5 mg Olanzapine 10 mg/ Olanzapine 2 (.5 mg) 12.5 mg PO HS [facility] Stop: 03/29/20 20:59 Oxybutynin Chloride (Ditropan Xl) 10 mg PO DAILY [facility] Stop: 03/21/20 08:59 Last Admin: 01/29/20 08:33 Dose: 10 mg Potassium Chloride (Klor-Con) 10 meq PO DAILY [facility] Stop: 03/21/20 08:59 Last Admin: 01/29/20 08:33 Dose: 10 meq Rivaroxaban (Xarelto) 20 mg PO DAILY [facility] Stop: 03/21/20 08:59 Last Admin: 01/29/20 08:33 Dose: 20 mg General: weak HEENT: NC/AT, PERRLA Neck: Supple Lungs: CTAB Cardiovascular: RRR, Normal S1, Normal S2 Abdomen: soft Extremities: clear Neurological: no change Internal Medicine Assmt/Plan - Assessment Assessment: 1. [place] 2. HTN 3. Hx of P.E. and DVT - Plan Plan: no obvious source of bleeding continue xeralto 20 mg po daily d/w r.n. reviewed complete medical records Nutritional Asmnt/Malnutr-PDOC - Dietary Evaluation Malnutrition Findings (Please click <Entered> for more info): Nutritional Asmnt/Malnutrition Start: 01/26/20 12: 42 Text: Status: Complete Freq: Protocol: Document 01/26/20 12:42 [email or web address] (Rec: 01/26/20 12:51 [facility]- [id number]) Nutritional Asmnt/Malnutrition Patient General Information Nutritional Screening Low Risk Diagnosis Psychosis Pertinent Medical Hx/Surgical Hx [place], Pulmonary embolism /DVT Subjective Information FNS providing patient with ~ 2300 kcal, 110gm protein; patient eating average 90% of meals, 2070 kcal, 99gm protein /day meeting 98% kcal, >100 protein goals. Tolerating current diet order with adequate intake. Current Diet Order/ Nutrition Support Regular Patient / S.O Not Indicated Pertinent Medications Vitamin D, lasix, Klor-con Pertinent Labs (01/20) K 3.3, Albumin 3.2, Cholesterol 206, LDL 133 Nutritional Hx/Data Height 1.8 m Height (Calculated Centimeters) 180.3 Current Weight (lbs) 99.79 kg Weight (Calculated Kilograms) 99.8 Weight (Calculated Grams) 63550.3 [place] Body Weight 172 % [place] Body Weight 128 Body Mass Index (BMI) 30.7 Recent Weight Change No Weight Status Obese GI Symptoms GI Symptoms None Last BM 01/23 x 1 Difficult in: None Food Allergies No Cultural/Ethnic/Tenriism Belief none indicated Usual diet at home unknown Skin Integrity/Comment: [place] 13, intact Current %PO Good (75-100%) Estimated Nutritional Goals BEE in Kcals: Adj wt of IBW Calories/Kcals/Kg ADj BW 83.6kg Kcals Calculated ~9557-3116 kcal/day (25-30 kcal/kg) Protein: Adj wt of IBW Protein g/kg: (1 gm/kg) Protein Calculated ~85 gm/day Fluid: ml ~3849-4028 ml/day (1 ml/kcal) Nutritional Problem 1. Problem Problem Altered nutrition related lab values realted to Etiology electrolyte imbalance aeb Signs/Symptoms: K 3.3 Intervention/Recommendation Comments 1. Continue regular diet as tolerated by patient. Encourage intake of high potassium foods (tomatoes, potatoes, oranges/OJ, bananas, etc). MD continue replace K as needed. Expected Outcomes/Goals Expected Outcomes/Goals Oral intake >75% of meals, weight stable or trend toward IBW, nutrition related labs WNL F/U MR 01/28-01/30
--- NOTE | 2020-01-29 20:44 | Progress Notes ---
DATE: 01/29/2020 Case was discussed with staff of the patient and reviewed records. The patient continues to isolate himself. He is taking his medication with no side effects; however, continues to be delusional and paranoid, continues to have poor insight and grandiose. I will be increasing his Zyprexa to 12.5 mg at bedtime to improve his psychotic symptoms. The patient continues to be unable to participate in a meaningful conversation, unable to make safe plan for self-care. He lives with his family and I was told that his wants him back home, so working to stabilize his condition, so he could go back home safely. I will continue to work with the patient in group therapy, milieu therapy, and adjust the medication as needed. JOB# [id number]
[2020-01-30] MEDS: Oxybutynin Chloride 5 mg ER Tab PO SCH (08:19)
[2020-01-30] MEDS: Potassium Chloride 10 mEq ER Tab PO SCH (08:19)
--- NOTE | 2020-01-30 14:14 | Internal Medicine Prog Note ---
Internal Medicine Subjective - Subjective Service Date: 01/30/20 Patient seen and examined:: without staff Patient is:: awake, asleep Per staff patient has:: no adverse event, no episodes of fall Internal Medicine Objective - Results Result Diagrams: 01/21/20 13:15 01/21/20 13:15 Recent Labs: Laboratory Last Values WBC 6.7 K/uL (4.8-10.8) 01/21/20 13:15 RBC 4.91 MIL/uL (4.2-6.2) 01/21/20 13:15 Hgb 14.5 g/dL (14.0-18.0) 01/21/20 13:15 Hct 42.4 % (36-54) 01/21/20 13:15 MCV 86 fL (79.0-98.0) 01/21/20 13:15 MCH 30 pg (27-31) 01/21/20 13:15 MCHC 34 % (32-36) 01/21/20 13:15 RDW 14.3 % (9.0-15.0) 01/21/20 13:15 Plt Count 287 K/uL (130-430) 01/21/20 13:15 MPV 9.0 fl (7.4-10.4) 01/21/20 13:15 Neut % (Auto) 63.3 % (40-70) 01/21/20 13:15 Lymph % (Auto) 22.3 % (20.5-51.5) 01/21/20 13:15 [place] % (Auto) 12.3 % (1.7-9.3) H 01/21/20 13:15 Eos % (Auto) 1.2 % (0-4) 01/21/20 13:15 Baso % (Auto) 0.9 % (0.0-2.0) 01/21/20 13:15 Neut # (Auto) 4.2 K/uL (1.8-7.7) 01/21/20 13:15 Lymph # (Auto) 1.5 K/uL (1.0-5.5) 01/21/20 13:15 [place] # (Auto) 0.8 K/uL (0.0-1.0) 01/21/20 13:15 Eos # (Auto) 0.1 K/uL (0.0-0.4) 01/21/20 13:15 Baso # (Auto) 0.1 K/uL (0.0-0.2) 01/21/20 13:15 Sodium 137 mmol/L (136-145) 01/21/20 13:15 Potassium 3.3 mmol/L (3.5-5.1) L 01/21/20 13:15 Chloride 108 mmol/L (98-107) H 01/21/20 13:15 Carbon Dioxide 26 mmol/L (23-29) 01/21/20 13:15 Anion Gap 6 (5-15) 01/21/20 13:15 BUN 26 mg/dL (8-21) H 01/21/20 13:15 Creatinine 1.18 mg/dL (0.70-1.30) 01/21/20 13:15 Glucose 93 mg/dL (70-99) 01/21/20 13:15 Hemoglobin A1c 5.3 % (4.8-5.6) 01/21/20 13:15 Calcium 8.8 mg/dL (8.4-10.2) 01/21/20 13:15 Total Bilirubin 0.3 mg/dL (0.0-1.0) 01/21/20 13:15 AST 27 U/L (10-37) 01/21/20 13:15 ALT 23 U/L (12-78) 01/21/20 13:15 Alkaline Phosphatase 95 U/L (46-116) 01/21/20 13:15 Total Protein 7.3 g/dL (6.4-8.3) 01/21/20 13:15 Albumin 3.2 g/dL (3.4-5.0) L 01/21/20 13:15 Triglycerides 112 mg/dL (30-150) 01/21/20 13:15 Cholesterol 206 mg/dL (<200) H 01/21/20 13:15 LDL Cholesterol 133 mg/dL (0-129) H 01/21/20 13:15 HDL Cholesterol 57 mg/dL (>45) 01/21/20 13:15 - Physical Exam Vitals and I&O: Vital Signs Temp 96.9 F 01/29/20 14:00 Pulse 64 01/29/20 14:00 Resp 18 01/29/20 14:00 BP 122/77 01/29/20 14:00 Pulse Ox 95 01/29/20 14:00 Intake & Output 01/29/20 01/30/20 01/30/20 18:59 06:59 18:59 Intake Total 800 0 Output Total 800 Balance 0 0 Intake: Oral 800 0 Output: Urine 800 Other: # Voids 3 # Bowel Movements 0 0 Active Medications: Current Medications Cholecalciferol (Vitamin D3) 1,000 iu PO DAILY [facility] Stop: 03/21/20 08:59 Last Admin: 01/30/20 08:19 Dose: 1,000 iu Furosemide (Lasix) 20 mg PO DAILY [facility] Stop: 03/21/20 08:59 Last Admin: 01/30/20 08:20 Dose: Not Given Gabapentin (Neurontin) 100 mg PO TID [facility] Stop: 03/26/20 20:59 Last Admin: 01/30/20 13:19 Dose: 100 mg Ibuprofen (Motrin) 600 mg PO Q4H PRN PRN Reason: Pain (Severe 7-10) Stop: 03/20/20 21:39 Last Admin: 01/29/20 13:42 Dose: 600 mg Lorazepam 1 mg/ Lorazepam 0.5 (mg) 1.5 mg PO BID PRN PRN Reason: AGITATION Stop: 03/23/20 11:39 Last Admin: 01/29/20 02:46 Dose: 1.5 mg Olanzapine 10 mg/ Olanzapine 2 (.5 mg) 12.5 mg PO HS [facility] Stop: 03/29/20 20:59 Last Admin: 01/29/20 20:49 Dose: 12.5 mg Oxybutynin Chloride (Ditropan Xl) 10 mg PO DAILY [facility] Stop: 03/21/20 08:59 Last Admin: 01/30/20 08:19 Dose: 10 mg Potassium Chloride (Klor-Con) 10 meq PO DAILY [facility] Stop: 03/21/20 08:59 Last Admin: 01/30/20 08:19 Dose: 10 meq Rivaroxaban (Xarelto) 20 mg PO DAILY [facility] Stop: 03/21/20 08:59 Last Admin: 01/30/20 08:19 Dose: 20 mg General: weak HEENT: NC/AT, PERRLA Neck: Supple Lungs: CTAB Cardiovascular: RRR, Normal S1, Normal S2 Abdomen: soft Extremities: clear Neurological: no change Internal Medicine Assmt/Plan - Assessment Assessment: 1. [place] 2. HTN 3. Hx of P.E. and DVT - Plan Plan: continue xeralto 20 mg po daily d/w r.n. reviewed complete medical records Nutritional Asmnt/Malnutr-PDOC - Dietary Evaluation Malnutrition Findings (Please click <Entered> for more info): Nutritional Asmnt/Malnutrition Start: 01/26/20 12: 42 Text: Status: Complete Freq: Protocol: Document 01/26/20 12:42 MMULDEVI (Rec: 01/26/20 12:51 [facility]- [email or web address]) Nutritional Asmnt/Malnutrition Patient General Information Nutritional Screening Low Risk Diagnosis Psychosis Pertinent Medical Hx/Surgical Hx [place], Pulmonary embolism /DVT Subjective Information FNS providing patient with ~ 2300 kcal, 110gm protein; patient eating average 90% of meals, 2070 kcal, 99gm protein /day meeting 98% kcal, >100 protein goals. Tolerating current diet order with adequate intake. Current Diet Order/ Nutrition Support Regular Patient / S.O Not Indicated Pertinent Medications Vitamin D, lasix, Klor-con Pertinent Labs (01/20) K 3.3, Albumin 3.2, Cholesterol 206, LDL 133 Nutritional Hx/Data Height 1.8 m Height (Calculated Centimeters) 180.3 Current Weight (lbs) 99.79 kg Weight (Calculated Kilograms) 99.8 Weight (Calculated Grams) 29705.3 [place] Body Weight 172 % [place] Body Weight 128 Body Mass Index (BMI) 30.7 Recent Weight Change No Weight Status Obese GI Symptoms GI Symptoms None Last BM 01/23 x 1 Difficult in: None Food Allergies No Cultural/Ethnic/Faith Belief none indicated Usual diet at home unknown Skin Integrity/Comment: [place] 13, intact Current %PO Good (75-100%) Estimated Nutritional Goals BEE in Kcals: Adj wt of IBW Calories/Kcals/Kg ADj BW 83.6kg Kcals Calculated ~9358-4225 kcal/day (25-30 kcal/kg) Protein: Adj wt of IBW Protein g/kg: (1 gm/kg) Protein Calculated ~85 gm/day Fluid: ml ~6582-4253 ml/day (1 ml/kcal) Nutritional Problem 1. Problem Problem Altered nutrition related lab values realted to Etiology electrolyte imbalance aeb Signs/Symptoms: K 3.3 Intervention/Recommendation Comments 1. Continue regular diet as tolerated by patient. Encourage intake of high potassium foods (tomatoes, potatoes, oranges/OJ, bananas, etc). MD continue replace K as needed. Expected Outcomes/Goals Expected Outcomes/Goals Oral intake >75% of meals, weight stable or trend toward IBW, nutrition related labs WNL F/U MR 01/28-01/30
[2020-01-30] MEDS: LORAZEPAM PO PRN (22:10)
--- NOTE | 2020-01-31 01:03 | Progress Notes ---
DATE: 01/30/2020 Case was discussed with staff of the patient, reviewed records. The patient is more alert today, but could not tell me the date. He can tell me his age. Continues to have poor insight, continues to be unable to make safe plan for self-care. Looking disheveled, internally preoccupied, stays to himself, unable to make safe plan for self-care. The patient continues to be psychotic, confused, disorganized. I did increase his dose of olanzapine yesterday to 12.5 mg at bedtime with no side effects, no sedation, no nausea, no extrapyramidal symptoms. We will continue outpatient group therapy, milieu therapy, adjust medication as needed. JOB# [id number]
[2020-01-31] MEDS: Potassium Chloride 10 mEq ER Tab PO SCH (08:30)
[2020-01-31] MEDS: Oxybutynin Chloride 5 mg ER Tab PO SCH (08:31)
--- NOTE | 2020-01-31 14:12 | Internal Medicine Prog Note ---
Internal Medicine Subjective - Subjective Service Date: 01/31/20 Patient seen and examined:: without staff Patient is:: awake, asleep Per staff patient has:: no adverse event, no episodes of fall Internal Medicine Objective - Results Result Diagrams: 01/21/20 13:15 01/21/20 13:15 Recent Labs: Laboratory Last Values WBC 6.7 K/uL (4.8-10.8) 01/21/20 13:15 RBC 4.91 MIL/uL (4.2-6.2) 01/21/20 13:15 Hgb 14.5 g/dL (14.0-18.0) 01/21/20 13:15 Hct 42.4 % (36-54) 01/21/20 13:15 MCV 86 fL (79.0-98.0) 01/21/20 13:15 MCH 30 pg (27-31) 01/21/20 13:15 MCHC 34 % (32-36) 01/21/20 13:15 RDW 14.3 % (9.0-15.0) 01/21/20 13:15 Plt Count 287 K/uL (130-430) 01/21/20 13:15 MPV 9.0 fl (7.4-10.4) 01/21/20 13:15 Neut % (Auto) 63.3 % (40-70) 01/21/20 13:15 Lymph % (Auto) 22.3 % (20.5-51.5) 01/21/20 13:15 [place] % (Auto) 12.3 % (1.7-9.3) H 01/21/20 13:15 Eos % (Auto) 1.2 % (0-4) 01/21/20 13:15 Baso % (Auto) 0.9 % (0.0-2.0) 01/21/20 13:15 Neut # (Auto) 4.2 K/uL (1.8-7.7) 01/21/20 13:15 Lymph # (Auto) 1.5 K/uL (1.0-5.5) 01/21/20 13:15 [place] # (Auto) 0.8 K/uL (0.0-1.0) 01/21/20 13:15 Eos # (Auto) 0.1 K/uL (0.0-0.4) 01/21/20 13:15 Baso # (Auto) 0.1 K/uL (0.0-0.2) 01/21/20 13:15 Sodium 137 mmol/L (136-145) 01/21/20 13:15 Potassium 3.3 mmol/L (3.5-5.1) L 01/21/20 13:15 Chloride 108 mmol/L (98-107) H 01/21/20 13:15 Carbon Dioxide 26 mmol/L (23-29) 01/21/20 13:15 Anion Gap 6 (5-15) 01/21/20 13:15 BUN 26 mg/dL (8-21) H 01/21/20 13:15 Creatinine 1.18 mg/dL (0.70-1.30) 01/21/20 13:15 Glucose 93 mg/dL (70-99) 01/21/20 13:15 Hemoglobin A1c 5.3 % (4.8-5.6) 01/21/20 13:15 Calcium 8.8 mg/dL (8.4-10.2) 01/21/20 13:15 Total Bilirubin 0.3 mg/dL (0.0-1.0) 01/21/20 13:15 AST 27 U/L (10-37) 01/21/20 13:15 ALT 23 U/L (12-78) 01/21/20 13:15 Alkaline Phosphatase 95 U/L (46-116) 01/21/20 13:15 Total Protein 7.3 g/dL (6.4-8.3) 01/21/20 13:15 Albumin 3.2 g/dL (3.4-5.0) L 01/21/20 13:15 Triglycerides 112 mg/dL (30-150) 01/21/20 13:15 Cholesterol 206 mg/dL (<200) H 01/21/20 13:15 LDL Cholesterol 133 mg/dL (0-129) H 01/21/20 13:15 HDL Cholesterol 57 mg/dL (>45) 01/21/20 13:15 - Physical Exam Vitals and I&O: Vital Signs Temp 97.1 F 01/31/20 05:53 Pulse 96 01/31/20 05:53 Resp 17 01/31/20 08:00 BP 138/87 01/31/20 08:31 Pulse Ox 92 01/31/20 05:53 Intake & Output 01/30/20 01/31/20 01/31/20 18:59 06:59 18:59 Intake Total 1000 240 Balance 1000 240 Intake: Oral 1000 240 Other: # Voids 2 2 # Bowel Movements 0 Active Medications: Current Medications Cholecalciferol (Vitamin D3) 1,000 iu PO DAILY [facility] Stop: 03/21/20 08:59 Last Admin: 01/31/20 08:30 Dose: 1,000 iu Furosemide (Lasix) 20 mg PO DAILY [facility] Stop: 03/21/20 08:59 Last Admin: 01/31/20 08:31 Dose: 20 mg Gabapentin (Neurontin) 100 mg PO TID [facility] Stop: 03/26/20 20:59 Last Admin: 01/31/20 13:38 Dose: 100 mg Ibuprofen (Motrin) 600 mg PO Q4H PRN PRN Reason: Pain (Severe 7-10) Stop: 03/20/20 21:39 Last Admin: 01/29/20 13:42 Dose: 600 mg Lorazepam 1 mg/ Lorazepam 0.5 (mg) 1.5 mg PO BID PRN PRN Reason: AGITATION Stop: 03/23/20 11:39 Last Admin: 01/30/20 22:10 Dose: 1.5 mg Olanzapine (Zyprexa) 15 mg PO HS [facility] Stop: 03/31/20 20:59 Oxybutynin Chloride (Ditropan Xl) 10 mg PO DAILY [facility] Stop: 03/21/20 08:59 Last Admin: 01/31/20 08:31 Dose: 10 mg Potassium Chloride (Klor-Con) 10 meq PO DAILY [facility] Stop: 03/21/20 08:59 Last Admin: 01/31/20 08:30 Dose: 10 meq Rivaroxaban (Xarelto) 20 mg PO DAILY [facility] Stop: 03/21/20 08:59 Last Admin: 01/31/20 08:31 Dose: 20 mg General: weak HEENT: NC/AT, PERRLA Neck: Supple Lungs: CTAB Cardiovascular: RRR, Normal S1, Normal S2 Abdomen: soft Extremities: clear Neurological: no change Internal Medicine Assmt/Plan - Assessment Assessment: 1. [place]'s 2. HTN 3. Hx of P.E. and DVT - Plan Plan: continue xeralto 20 mg po daily d/w r.n. reviewed complete medical records Nutritional Asmnt/Malnutr-PDOC - Dietary Evaluation Malnutrition Findings (Please click <Entered> for more info): Nutritional Asmnt/Malnutrition Start: 01/26/20 12: 42 Text: Status: Complete Freq: Protocol: Document 01/26/20 12:42 JORDAN (Rec: 01/26/20 12:51 JORDAN GILBERTO- [id number]) Nutritional Asmnt/Malnutrition Patient General Information Nutritional Screening Low Risk Diagnosis Psychosis Pertinent Medical Hx/Surgical Hx [place], Pulmonary embolism /DVT Subjective Information FNS providing patient with ~ 2300 kcal, 110gm protein; patient eating average 90% of meals, 2070 kcal, 99gm protein /day meeting 98% kcal, >100 protein goals. Tolerating current diet order with adequate intake. Current Diet Order/ Nutrition Support Regular Patient / S.O Not Indicated Pertinent Medications Vitamin D, lasix, Klor-con Pertinent Labs (01/20) K 3.3, Albumin 3.2, Cholesterol 206, LDL 133 Nutritional Hx/Data Height 1.8 m Height (Calculated Centimeters) 180.3 Current Weight (lbs) 99.79 kg Weight (Calculated Kilograms) 99.8 Weight (Calculated Grams) 83348.3 [place] Body Weight 172 % [place] Body Weight 128 Body Mass Index (BMI) 30.7 Recent Weight Change No Weight Status Obese GI Symptoms GI Symptoms None Last BM 01/23 x 1 Difficult in: None Food Allergies No Cultural/Ethnic/Scientologist Belief none indicated Usual diet at home unknown Skin Integrity/Comment: Aman 13, intact Current %PO Good (75-100%) Estimated Nutritional Goals BEE in Kcals: Adj wt of IBW Calories/Kcals/Kg ADj BW 83.6kg Kcals Calculated ~7233-8371 kcal/day (25-30 kcal/kg) Protein: Adj wt of IBW Protein g/kg: (1 gm/kg) Protein Calculated ~85 gm/day Fluid: ml ~7467-6994 ml/day (1 ml/kcal) Nutritional Problem 1. Problem Problem Altered nutrition related lab values realted to Etiology electrolyte imbalance aeb Signs/Symptoms: K 3.3 Intervention/Recommendation Comments 1. Continue regular diet as tolerated by patient. Encourage intake of high potassium foods (tomatoes, potatoes, oranges/OJ, bananas, etc). MD continue replace K as needed. Expected Outcomes/Goals Expected Outcomes/Goals Oral intake >75% of meals, weight stable or trend toward IBW, nutrition related labs WNL F/U MR 01/28-01/30
[2020-01-31] MEDS: LORAZEPAM PO PRN (20:35)
--- NOTE | 2020-01-31 23:56 | Progress Notes ---
DATE: 01/31/2020 Case was discussed with staff of the patient, reviewed records. The patient is alert; however, he is unable to carry on a conversation, internally preoccupied. Continues to have poor insight. Continues to be unable to participate in a meaningful conversation or make safe plan for self-care. He is sleeping better, eating better. His family wants him back home according to the staff. I will be increasing his olanzapine to 50 mg at bedtime. No side effects with the medication, no sedation, no nausea, no extrapyramidal symptoms. I am not sure yet about his basic level of functioning, but I will be increasing his Zyprexa to 50 mg at bedtime. We will continue outpatient group therapy, milieu therapy, adjust medication as needed. JOB# [id number]
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
[2020-02-01] MEDS: Potassium Chloride 10 mEq ER Tab PO SCH (08:28)
[2020-02-01] MEDS: Oxybutynin Chloride 5 mg ER Tab PO SCH (08:29)
--- NOTE | 2020-02-01 10:43 | Internal Medicine Prog Note ---
Internal Medicine Subjective - Subjective Service Date: 02/01/20 (more awake) Patient seen and examined:: without staff Patient is:: awake Per staff patient has:: no adverse event, no episodes of fall Internal Medicine Objective - Results Result Diagrams: 01/21/20 13:15 01/21/20 13:15 Recent Labs: Laboratory Last Values WBC 6.7 K/uL (4.8-10.8) 01/21/20 13:15 RBC 4.91 MIL/uL (4.2-6.2) 01/21/20 13:15 Hgb 14.5 g/dL (14.0-18.0) 01/21/20 13:15 Hct 42.4 % (36-54) 01/21/20 13:15 MCV 86 fL (79.0-98.0) 01/21/20 13:15 MCH 30 pg (27-31) 01/21/20 13:15 MCHC 34 % (32-36) 01/21/20 13:15 RDW 14.3 % (9.0-15.0) 01/21/20 13:15 Plt Count 287 K/uL (130-430) 01/21/20 13:15 MPV 9.0 fl (7.4-10.4) 01/21/20 13:15 Neut % (Auto) 63.3 % (40-70) 01/21/20 13:15 Lymph % (Auto) 22.3 % (20.5-51.5) 01/21/20 13:15 [place] % (Auto) 12.3 % (1.7-9.3) H 01/21/20 13:15 Eos % (Auto) 1.2 % (0-4) 01/21/20 13:15 Baso % (Auto) 0.9 % (0.0-2.0) 01/21/20 13:15 Neut # (Auto) 4.2 K/uL (1.8-7.7) 01/21/20 13:15 Lymph # (Auto) 1.5 K/uL (1.0-5.5) 01/21/20 13:15 [place] # (Auto) 0.8 K/uL (0.0-1.0) 01/21/20 13:15 Eos # (Auto) 0.1 K/uL (0.0-0.4) 01/21/20 13:15 Baso # (Auto) 0.1 K/uL (0.0-0.2) 01/21/20 13:15 Sodium 137 mmol/L (136-145) 01/21/20 13:15 Potassium 3.3 mmol/L (3.5-5.1) L 01/21/20 13:15 Chloride 108 mmol/L (98-107) H 01/21/20 13:15 Carbon Dioxide 26 mmol/L (23-29) 01/21/20 13:15 Anion Gap 6 (5-15) 01/21/20 13:15 BUN 26 mg/dL (8-21) H 01/21/20 13:15 Creatinine 1.18 mg/dL (0.70-1.30) 01/21/20 13:15 Glucose 93 mg/dL (70-99) 01/21/20 13:15 Hemoglobin A1c 5.3 % (4.8-5.6) 01/21/20 13:15 Calcium 8.8 mg/dL (8.4-10.2) 01/21/20 13:15 Total Bilirubin 0.3 mg/dL (0.0-1.0) 01/21/20 13:15 AST 27 U/L (10-37) 01/21/20 13:15 ALT 23 U/L (12-78) 01/21/20 13:15 Alkaline Phosphatase 95 U/L (46-116) 01/21/20 13:15 Total Protein 7.3 g/dL (6.4-8.3) 01/21/20 13:15 Albumin 3.2 g/dL (3.4-5.0) L 01/21/20 13:15 Triglycerides 112 mg/dL (30-150) 01/21/20 13:15 Cholesterol 206 mg/dL (<200) H 01/21/20 13:15 LDL Cholesterol 133 mg/dL (0-129) H 01/21/20 13:15 HDL Cholesterol 57 mg/dL (>45) 01/21/20 13:15 - Physical Exam Vitals and I&O: Vital Signs Temp 97.1 F 02/01/20 06:32 Pulse 91 02/01/20 06:32 Resp 19 02/01/20 06:32 BP 144/101 02/01/20 08:28 Pulse Ox 94 02/01/20 06:32 Intake & Output 01/31/20 02/01/20 02/01/20 18:59 06:59 18:59 Intake Total 900 204 Balance 900 204 Intake: Oral 900 204 Other: # Voids 3 1 # Bowel Movements 0 0 Active Medications: Current Medications Cholecalciferol (Vitamin D3) 1,000 iu PO DAILY [facility] Stop: 03/21/20 08:59 Last Admin: 02/01/20 08:28 Dose: 1,000 iu Furosemide (Lasix) 20 mg PO DAILY [facility] Stop: 03/21/20 08:59 Last Admin: 02/01/20 08:28 Dose: 20 mg Gabapentin (Neurontin) 100 mg PO TID [facility] Stop: 03/26/20 20:59 Last Admin: 02/01/20 08:29 Dose: 100 mg Ibuprofen (Motrin) 600 mg PO Q4H PRN PRN Reason: Pain (Severe 7-10) Stop: 03/20/20 21:39 Last Admin: 01/29/20 13:42 Dose: 600 mg Lorazepam 1 mg/ Lorazepam 0.5 (mg) 1.5 mg PO BID PRN PRN Reason: AGITATION Stop: 03/23/20 11:39 Last Admin: 01/31/20 20:35 Dose: 1.5 mg Olanzapine (Zyprexa) 15 mg PO HS [facility] Stop: 03/31/20 20:59 Last Admin: 01/31/20 20:35 Dose: 15 mg Oxybutynin Chloride (Ditropan Xl) 10 mg PO DAILY [facility] Stop: 03/21/20 08:59 Last Admin: 02/01/20 08:29 Dose: 10 mg Potassium Chloride (Klor-Con) 10 meq PO DAILY [facility] Stop: 03/21/20 08:59 Last Admin: 02/01/20 08:28 Dose: 10 meq Rivaroxaban (Xarelto) 20 mg PO DAILY [facility] Stop: 03/21/20 08:59 Last Admin: 02/01/20 08:28 Dose: 20 mg General: weak HEENT: NC/AT, PERRLA Neck: Supple Lungs: CTAB Cardiovascular: RRR, Normal S1, Normal S2 Abdomen: soft Extremities: clear Neurological: no change Internal Medicine Assmt/Plan - Assessment Assessment: 1. [place]'s 2. HTN 3. Hx of P.E. and DVT - Plan Plan: continue xeralto 20 mg po daily no obvious source of bleeding d/w r.n. reviewed complete medical records Nutritional Asmnt/Malnutr-PDOC - Dietary Evaluation Malnutrition Findings (Please click <Entered> for more info): Nutritional Asmnt/Malnutrition Start: 01/26/20 12: 42 Text: Status: Complete Freq: Protocol: Document 01/26/20 12:42 MMCADE (Rec: 01/26/20 12:51 [email or web address] GILBERTO- [id number]) Nutritional Asmnt/Malnutrition Patient General Information Nutritional Screening Low Risk Diagnosis Psychosis Pertinent Medical Hx/Surgical Hx [place], Pulmonary embolism /DVT Subjective Information FNS providing patient with ~ 2300 kcal, 110gm protein; patient eating average 90% of meals, 2070 kcal, 99gm protein /day meeting 98% kcal, >100 protein goals. Tolerating current diet order with adequate intake. Current Diet Order/ Nutrition Support Regular Patient / S.O Not Indicated Pertinent Medications Vitamin D, lasix, Klor-con Pertinent Labs (01/20) K 3.3, Albumin 3.2, Cholesterol 206, LDL 133 Nutritional Hx/Data Height 1.8 m Height (Calculated Centimeters) 180.3 Current Weight (lbs) 99.79 kg Weight (Calculated Kilograms) 99.8 Weight (Calculated Grams) 18805.3 [place] Body Weight 172 % [place] Body Weight 128 Body Mass Index (BMI) 30.7 Recent Weight Change No Weight Status Obese GI Symptoms GI Symptoms None Last BM 01/23 x 1 Difficult in: None Food Allergies No Cultural/Ethnic/Congregation Belief none indicated Usual diet at home unknown Skin Integrity/Comment: [place] 13, intact Current %PO Good (75-100%) Estimated Nutritional Goals BEE in Kcals: Adj wt of IBW Calories/Kcals/Kg ADj BW 83.6kg Kcals Calculated ~8595-9233 kcal/day (25-30 kcal/kg) Protein: Adj wt of IBW Protein g/kg: (1 gm/kg) Protein Calculated ~85 gm/day Fluid: ml ~9911-0203 ml/day (1 ml/kcal) Nutritional Problem 1. Problem Problem Altered nutrition related lab values realted to Etiology electrolyte imbalance aeb Signs/Symptoms: K 3.3 Intervention/Recommendation Comments 1. Continue regular diet as tolerated by patient. Encourage intake of high potassium foods (tomatoes, potatoes, oranges/OJ, bananas, etc). MD continue replace K as needed. Expected Outcomes/Goals Expected Outcomes/Goals Oral intake >75% of meals, weight stable or trend toward IBW, nutrition related labs WNL F/U MR 01/28-01/30
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
[2020-02-02] MEDS: Oxybutynin Chloride 5 mg ER Tab PO SCH (09:08)
[2020-02-02] MEDS: Potassium Chloride 10 mEq ER Tab PO SCH (09:09)
--- NOTE | 2020-02-02 12:11 | Internal Medicine Prog Note ---
Internal Medicine Subjective - Subjective Service Date: 02/02/20 Patient seen and examined:: without staff (no fevers, no cough, no chest pain, no sob) Patient is:: awake Per staff patient has:: no adverse event, no episodes of fall Internal Medicine Objective - Results Result Diagrams: 01/21/20 13:15 01/21/20 13:15 Recent Labs: Laboratory Last Values WBC 6.7 K/uL (4.8-10.8) 01/21/20 13:15 RBC 4.91 MIL/uL (4.2-6.2) 01/21/20 13:15 Hgb 14.5 g/dL (14.0-18.0) 01/21/20 13:15 Hct 42.4 % (36-54) 01/21/20 13:15 MCV 86 fL (79.0-98.0) 01/21/20 13:15 MCH 30 pg (27-31) 01/21/20 13:15 MCHC 34 % (32-36) 01/21/20 13:15 RDW 14.3 % (9.0-15.0) 01/21/20 13:15 Plt Count 287 K/uL (130-430) 01/21/20 13:15 MPV 9.0 fl (7.4-10.4) 01/21/20 13:15 Neut % (Auto) 63.3 % (40-70) 01/21/20 13:15 Lymph % (Auto) 22.3 % (20.5-51.5) 01/21/20 13:15 [place] % (Auto) 12.3 % (1.7-9.3) H 01/21/20 13:15 Eos % (Auto) 1.2 % (0-4) 01/21/20 13:15 Baso % (Auto) 0.9 % (0.0-2.0) 01/21/20 13:15 Neut # (Auto) 4.2 K/uL (1.8-7.7) 01/21/20 13:15 Lymph # (Auto) 1.5 K/uL (1.0-5.5) 01/21/20 13:15 [place] # (Auto) 0.8 K/uL (0.0-1.0) 01/21/20 13:15 Eos # (Auto) 0.1 K/uL (0.0-0.4) 01/21/20 13:15 Baso # (Auto) 0.1 K/uL (0.0-0.2) 01/21/20 13:15 Sodium 137 mmol/L (136-145) 01/21/20 13:15 Potassium 3.3 mmol/L (3.5-5.1) L 01/21/20 13:15 Chloride 108 mmol/L (98-107) H 01/21/20 13:15 Carbon Dioxide 26 mmol/L (23-29) 01/21/20 13:15 Anion Gap 6 (5-15) 01/21/20 13:15 BUN 26 mg/dL (8-21) H 01/21/20 13:15 Creatinine 1.18 mg/dL (0.70-1.30) 01/21/20 13:15 Glucose 93 mg/dL (70-99) 01/21/20 13:15 Hemoglobin A1c 5.3 % (4.8-5.6) 01/21/20 13:15 Calcium 8.8 mg/dL (8.4-10.2) 01/21/20 13:15 Total Bilirubin 0.3 mg/dL (0.0-1.0) 01/21/20 13:15 AST 27 U/L (10-37) 01/21/20 13:15 ALT 23 U/L (12-78) 01/21/20 13:15 Alkaline Phosphatase 95 U/L (46-116) 01/21/20 13:15 Total Protein 7.3 g/dL (6.4-8.3) 01/21/20 13:15 Albumin 3.2 g/dL (3.4-5.0) L 01/21/20 13:15 Triglycerides 112 mg/dL (30-150) 01/21/20 13:15 Cholesterol 206 mg/dL (<200) H 01/21/20 13:15 LDL Cholesterol 133 mg/dL (0-129) H 01/21/20 13:15 HDL Cholesterol 57 mg/dL (>45) 01/21/20 13:15 - Physical Exam Vitals and I&O: Vital Signs Temp 96.7 F 02/02/20 06:20 Pulse 79 09/13/20 06:20 Resp 20 02/02/20 06:20 BP 133/57 02/02/20 09:09 Pulse Ox 96 02/02/20 06:20 Intake & Output 02/01/20 02/02/20 02/02/20 18:59 06:59 18:59 Intake Total 1200 240 Balance 1200 240 Intake: Oral 1200 240 Other: # Voids 2 # Bowel Movements 1 Active Medications: Current Medications Cholecalciferol (Vitamin D3) 1,000 iu PO DAILY [facility] Stop: 03/21/20 08:59 Last Admin: 02/02/20 09:09 Dose: 1,000 iu Diazepam (Valium) 5 mg PO BID [facility]; Protocol Stop: 04/02/20 08:59 Last Admin: 02/02/20 10:05 Dose: Not Given Furosemide (Lasix) 20 mg PO DAILY [facility] Stop: 03/21/20 08:59 Last Admin: 02/02/20 09:09 Dose: 20 mg Gabapentin (Neurontin) 100 mg PO TID [facility] Stop: 03/26/20 20:59 Last Admin: 02/02/20 09:09 Dose: 100 mg Ibuprofen (Motrin) 600 mg PO Q4H PRN PRN Reason: Pain (Severe 7-10) Stop: 03/20/20 21:39 Last Admin: 01/29/20 13:42 Dose: 600 mg Olanzapine (Zyprexa) 15 mg PO HS [facility] Stop: 03/31/20 20:59 Last Admin: 02/01/20 20:58 Dose: 15 mg Oxybutynin Chloride (Ditropan Xl) 10 mg PO DAILY [facility] Stop: 03/21/20 08:59 Last Admin: 02/02/20 09:08 Dose: 10 mg Potassium Chloride (Klor-Con) 10 meq PO DAILY [facility] Stop: 03/21/20 08:59 Last Admin: 02/02/20 09:09 Dose: 10 meq Rivaroxaban (Xarelto) 20 mg PO DAILY [facility] Stop: 03/21/20 08:59 Last Admin: 02/02/20 09:09 Dose: 20 mg General: weak HEENT: NC/AT, PERRLA Neck: Supple Lungs: CTAB Cardiovascular: RRR, Normal S1, Normal S2 Abdomen: soft Extremities: clear Neurological: no change Internal Medicine Assmt/Plan - Assessment Assessment: 1. [place]'s 2. HTN 3. Hx of P.E. and DVT - Plan Plan: continue xeralto 20 mg po daily no obvious source of bleeding d/w r.n. reviewed complete medical records Nutritional Asmnt/Malnutr-PDOC - Dietary Evaluation Malnutrition Findings (Please click <Entered> for more info): Nutritional Asmnt/Malnutrition Start: 01/26/20 12: 42 Text: Status: Complete Freq: Protocol: Document 01/26/20 12:42 MMULDEVI (Rec: 01/26/20 12:51 MMULHERN GILBERTO- [id number]) Nutritional Asmnt/Malnutrition Patient General Information Nutritional Screening Low Risk Diagnosis Psychosis Pertinent Medical Hx/Surgical Hx [place], Pulmonary embolism /DVT Subjective Information FNS providing patient with ~ 2300 kcal, 110gm protein; patient eating average 90% of meals, 2070 kcal, 99gm protein /day meeting 98% kcal, >100 protein goals. Tolerating current diet order with adequate intake. Current Diet Order/ Nutrition Support Regular Patient / S.O Not Indicated Pertinent Medications Vitamin D, lasix, Klor-con Pertinent Labs (01/20) K 3.3, Albumin 3.2, Cholesterol 206, LDL 133 Nutritional Hx/Data Height 1.8 m Height (Calculated Centimeters) 180.3 Current Weight (lbs) 99.79 kg Weight (Calculated Kilograms) 99.8 Weight (Calculated Grams) 75728.3 [place] Body Weight 172 % [place] Body Weight 128 Body Mass Index (BMI) 30.7 Recent Weight Change No Weight Status Obese GI Symptoms GI Symptoms None Last BM 01/23 x 1 Difficult in: None Food Allergies No Cultural/Ethnic/Amish Belief none indicated Usual diet at home unknown Skin Integrity/Comment: Aman 13, intact Current %PO Good (75-100%) Estimated Nutritional Goals BEE in Kcals: Adj wt of IBW Calories/Kcals/Kg ADj BW 83.6kg Kcals Calculated ~1658-1108 kcal/day (25-30 kcal/kg) Protein: Adj wt of IBW Protein g/kg: (1 gm/kg) Protein Calculated ~85 gm/day Fluid: ml ~0756-9630 ml/day (1 ml/kcal) Nutritional Problem 1. Problem Problem Altered nutrition related lab values realted to Etiology electrolyte imbalance aeb Signs/Symptoms: K 3.3 Intervention/Recommendation Comments 1. Continue regular diet as tolerated by patient. Encourage intake of high potassium foods (tomatoes, potatoes, oranges/OJ, bananas, etc). MD continue replace K as needed. Expected Outcomes/Goals Expected Outcomes/Goals Oral intake >75% of meals, weight stable or trend toward IBW, nutrition related labs WNL F/U MR 01/28-01/30
[2020-02-03] MEDS: Potassium Chloride 10 mEq ER Tab PO SCH (09:32)
[2020-02-03] MEDS: Oxybutynin Chloride 5 mg ER Tab PO SCH (09:32)
--- NOTE | 2020-02-04 00:11 | Progress Notes ---
DATE: 02/03/2020 Case was discussed with staff of the patient, reviewed records. The patient was acting out. Continues to have ongoing behavioral disturbances. He apparently tried yesterday to come to the nurses' station. _he was escorted out of the nurses' station, had to be escorted again, continues to be impulsive, unpredictable. However, later in the day, he had high blood pressure, was sent to [place] to be medically clear. The family reported that they want him home when he is ready when he is no longer aggressive. The patient continues to be unpredictable, impulsive, delusional, unable to make safe plan for self-care. The patient was started yesterday on Valium 5 mg twice a day. I tried talk to his who said that is the only thing that worked for him and will continue outpatient group therapy, milieu therapy, adjust medication as needed. JOB# [id number] RUTHIE
[2020-02-04] MEDS: Potassium Chloride 10 mEq ER Tab PO SCH (09:05)
[2020-02-04] MEDS: Oxybutynin Chloride 5 mg ER Tab PO SCH (09:06)
--- NOTE | 2020-02-04 14:35 | Internal Medicine Prog Note ---
Internal Medicine Subjective - Subjective Service Date: 02/04/20 Patient seen and examined:: without staff (s/p ER visit for hypotension. somnolent but arousable now) Patient is:: awake Per staff patient has:: no adverse event, no episodes of fall Internal Medicine Objective - Results Result Diagrams: 01/21/20 13:15 01/21/20 13:15 Recent Labs: Laboratory Last Values WBC 6.7 K/uL (4.8-10.8) 01/21/20 13:15 RBC 4.91 MIL/uL (4.2-6.2) 01/21/20 13:15 Hgb 14.5 g/dL (14.0-18.0) 01/21/20 13:15 Hct 42.4 % (36-54) 01/21/20 13:15 MCV 86 fL (79.0-98.0) 01/21/20 13:15 MCH 30 pg (27-31) 01/21/20 13:15 MCHC 34 % (32-36) 01/21/20 13:15 RDW 14.3 % (9.0-15.0) 01/21/20 13:15 Plt Count 287 K/uL (130-430) 01/21/20 13:15 MPV 9.0 fl (7.4-10.4) 01/21/20 13:15 Neut % (Auto) 63.3 % (40-70) 01/21/20 13:15 Lymph % (Auto) 22.3 % (20.5-51.5) 01/21/20 13:15 [place] % (Auto) 12.3 % (1.7-9.3) H 01/21/20 13:15 Eos % (Auto) 1.2 % (0-4) 01/21/20 13:15 Baso % (Auto) 0.9 % (0.0-2.0) 01/21/20 13:15 Neut # (Auto) 4.2 K/uL (1.8-7.7) 01/21/20 13:15 Lymph # (Auto) 1.5 K/uL (1.0-5.5) 01/21/20 13:15 [place] # (Auto) 0.8 K/uL (0.0-1.0) 01/21/20 13:15 Eos # (Auto) 0.1 K/uL (0.0-0.4) 01/21/20 13:15 Baso # (Auto) 0.1 K/uL (0.0-0.2) 01/21/20 13:15 Sodium 137 mmol/L (136-145) 01/21/20 13:15 Potassium 3.3 mmol/L (3.5-5.1) L 01/21/20 13:15 Chloride 108 mmol/L (98-107) H 01/21/20 13:15 Carbon Dioxide 26 mmol/L (23-29) 01/21/20 13:15 Anion Gap 6 (5-15) 01/21/20 13:15 BUN 26 mg/dL (8-21) H 01/21/20 13:15 Creatinine 1.18 mg/dL (0.70-1.30) 01/21/20 13:15 Glucose 93 mg/dL (70-99) 01/21/20 13:15 Hemoglobin A1c 5.3 % (4.8-5.6) 01/21/20 13:15 Calcium 8.8 mg/dL (8.4-10.2) 01/21/20 13:15 Total Bilirubin 0.3 mg/dL (0.0-1.0) 01/21/20 13:15 AST 27 U/L (10-37) 01/21/20 13:15 ALT 23 U/L (12-78) 01/21/20 13:15 Alkaline Phosphatase 95 U/L (46-116) 01/21/20 13:15 Total Protein 7.3 g/dL (6.4-8.3) 01/21/20 13:15 Albumin 3.2 g/dL (3.4-5.0) L 01/21/20 13:15 Triglycerides 112 mg/dL (30-150) 01/21/20 13:15 Cholesterol 206 mg/dL (<200) H 01/21/20 13:15 LDL Cholesterol 133 mg/dL (0-129) H 01/21/20 13:15 HDL Cholesterol 57 mg/dL (>45) 01/21/20 13:15 - Physical Exam Vitals and I&O: Vital Signs Temp 97.0 F 02/04/20 06:00 Pulse 72 02/04/20 06:00 Resp 20 02/04/20 08:00 BP 137/88 02/04/20 09:06 Pulse Ox 94 02/04/20 06:00 Intake & Output 02/03/20 02/04/20 02/04/20 18:59 06:59 18:59 Intake Total 360 250 Balance 360 250 Intake: Oral 360 250 Other: # Voids 3 3 # Bowel Movements 0 Active Medications: Current Medications Cholecalciferol (Vitamin D3) 1,000 iu PO DAILY [facility] Stop: 03/21/20 08:59 Last Admin: 02/04/20 09:05 Dose: 1,000 iu Diazepam (Valium) 5 mg PO BID [facility]; Protocol Stop: 04/02/20 08:59 Last Admin: 02/04/20 09:05 Dose: 5 mg Furosemide (Lasix) 20 mg PO DAILY [facility] Stop: 03/21/20 08:59 Last Admin: 02/04/20 09:06 Dose: 20 mg Gabapentin (Neurontin) 100 mg PO TID [facility] Stop: 03/26/20 20:59 Last Admin: 02/04/20 13:08 Dose: 100 mg Ibuprofen (Motrin) 600 mg PO Q4H PRN PRN Reason: Pain (Severe 7-10) Stop: 03/20/20 21:39 Last Admin: 02/04/20 09:44 Dose: 600 mg Olanzapine (Zyprexa) 15 mg PO HS [facility] Stop: 03/31/20 20:59 Last Admin: 02/03/20 21:00 Dose: Not Given Oxybutynin Chloride (Ditropan Xl) 10 mg PO DAILY [facility] Stop: 03/21/20 08:59 Last Admin: 02/04/20 09:06 Dose: 10 mg Potassium Chloride (Klor-Con) 10 meq PO DAILY [facility] Stop: 03/21/20 08:59 Last Admin: 02/04/20 09:05 Dose: 10 meq Rivaroxaban (Xarelto) 20 mg PO DAILY [facility] Stop: 03/21/20 08:59 Last Admin: 02/04/20 09:06 Dose: 20 mg General: weak HEENT: NC/AT, PERRLA Neck: Supple Lungs: CTAB Cardiovascular: RRR, Normal S1, Normal S2 Abdomen: soft Extremities: clear Neurological: no change Internal Medicine Assmt/Plan - Assessment Assessment: 1. [place] 2. HTN 3. Hx of P.E. and DVT - Plan Plan: continue xeralto 20 mg po daily no obvious source of bleeding encourage p.o. intake d/w r.n. reviewed complete medical records Nutritional Asmnt/Malnutr-PDOC - Dietary Evaluation Malnutrition Findings (Please click <Entered> for more info): Nutritional Asmnt/Malnutrition Start: 01/26/20 12: 42 Text: Status: Complete Freq: Protocol: Document 01/26/20 12:42 M[facility]ADE (Rec: 01/26/20 12:51 [email or web address] [id number]) Nutritional Asmnt/Malnutrition Patient General Information Nutritional Screening Low Risk Diagnosis Psychosis Pertinent Medical Hx/Surgical Hx [place], Pulmonary embolism /DVT Subjective Information FNS providing patient with ~ 2300 kcal, 110gm protein; patient eating average 90% of meals, 2070 kcal, 99gm protein /day meeting 98% kcal, >100 protein goals. Tolerating current diet order with adequate intake. Current Diet Order/ Nutrition Support Regular Patient / S.O Not Indicated Pertinent Medications Vitamin D, lasix, Klor-con Pertinent Labs (01/20) K 3.3, Albumin 3.2, Cholesterol 206, LDL 133 Nutritional Hx/Data Height 1.8 m Height (Calculated Centimeters) 180.3 Current Weight (lbs) 99.79 kg Weight (Calculated Kilograms) 99.8 Weight (Calculated Grams) 78990.3 [place] Body Weight 172 % [place] Body Weight 128 Body Mass Index (BMI) 30.7 Recent Weight Change No Weight Status Obese GI Symptoms GI Symptoms None Last BM 01/23 x 1 Difficult in: None Food Allergies No Cultural/Ethnic/Zoroastrianism Belief none indicated Usual diet at home unknown Skin Integrity/Comment: Aman 13, intact Current %PO Good (75-100%) Estimated Nutritional Goals BEE in Kcals: Adj wt of IBW Calories/Kcals/Kg ADj BW 83.6kg Kcals Calculated ~7559-9823 kcal/day (25-30 kcal/kg) Protein: Adj wt of IBW Protein g/kg: (1 gm/kg) Protein Calculated ~85 gm/day Fluid: ml ~6672-5960 ml/day (1 ml/kcal) Nutritional Problem 1. Problem Problem Altered nutrition related lab values realted to Etiology electrolyte imbalance aeb Signs/Symptoms: K 3.3 Intervention/Recommendation Comments 1. Continue regular diet as tolerated by patient. Encourage intake of high potassium foods (tomatoes, potatoes, oranges/OJ, bananas, etc). MD continue replace K as needed. Expected Outcomes/Goals Expected Outcomes/Goals Oral intake >75% of meals, weight stable or trend toward IBW, nutrition related labs WNL F/U MR 01/28-01/30
--- NOTE | 2020-02-04 23:50 | Progress Notes ---
DATE: 02/04/2020 Case was discussed with staff of the patient and reviewed records. The patient continues to be internally preoccupied. He was aggressive a few days over the weekend. He was sent to [place] after a fall, medically cleared and sent back. No side effects to the medication, no sedation, no nausea, and no extrapyramidal symptoms. The patient can express himself. Vital signs are reviewed. Lab work is reviewed. His lab work shows CBC with high monocytes, the rest within normal range. Chemistry panel with low potassium, low chloride, and low albumin. Lipid panel shows high cholesterol. We will continue to work with the patient in group therapy, milieu therapy, and adjust the medications as needed. JOB# [id number]
[2020-02-05] MEDS: Potassium Chloride 10 mEq ER Tab PO SCH (09:03)
[2020-02-05] MEDS: Oxybutynin Chloride 5 mg ER Tab PO SCH (09:04)
--- NOTE | 2020-02-05 15:07 | Internal Medicine Prog Note ---
Internal Medicine Subjective - Subjective Service Date: 02/05/20 Patient seen and examined:: without staff Patient is:: awake Per staff patient has:: no adverse event, no episodes of fall Internal Medicine Objective - Results Result Diagrams: 01/21/20 13:15 01/21/20 13:15 Recent Labs: Laboratory Last Values WBC 6.7 K/uL (4.8-10.8) 01/21/20 13:15 RBC 4.91 MIL/uL (4.2-6.2) 01/21/20 13:15 Hgb 14.5 g/dL (14.0-18.0) 01/21/20 13:15 Hct 42.4 % (36-54) 01/21/20 13:15 MCV 86 fL (79.0-98.0) 01/21/20 13:15 MCH 30 pg (27-31) 01/21/20 13:15 MCHC 34 % (32-36) 01/21/20 13:15 RDW 14.3 % (9.0-15.0) 01/21/20 13:15 Plt Count 287 K/uL (130-430) 01/21/20 13:15 MPV 9.0 fl (7.4-10.4) 01/21/20 13:15 Neut % (Auto) 63.3 % (40-70) 01/21/20 13:15 Lymph % (Auto) 22.3 % (20.5-51.5) 01/21/20 13:15 [place] % (Auto) 12.3 % (1.7-9.3) H 01/21/20 13:15 Eos % (Auto) 1.2 % (0-4) 01/21/20 13:15 Baso % (Auto) 0.9 % (0.0-2.0) 01/21/20 13:15 Neut # (Auto) 4.2 K/uL (1.8-7.7) 01/21/20 13:15 Lymph # (Auto) 1.5 K/uL (1.0-5.5) 01/21/20 13:15 [place] # (Auto) 0.8 K/uL (0.0-1.0) 01/21/20 13:15 Eos # (Auto) 0.1 K/uL (0.0-0.4) 01/21/20 13:15 Baso # (Auto) 0.1 K/uL (0.0-0.2) 01/21/20 13:15 Sodium 137 mmol/L (136-145) 01/21/20 13:15 Potassium 3.3 mmol/L (3.5-5.1) L 01/21/20 13:15 Chloride 108 mmol/L (98-107) H 01/21/20 13:15 Carbon Dioxide 26 mmol/L (23-29) 01/21/20 13:15 Anion Gap 6 (5-15) 01/21/20 13:15 BUN 26 mg/dL (8-21) H 01/21/20 13:15 Creatinine 1.18 mg/dL (0.70-1.30) 01/21/20 13:15 Glucose 93 mg/dL (70-99) 01/21/20 13:15 Hemoglobin A1c 5.3 % (4.8-5.6) 01/21/20 13:15 Calcium 8.8 mg/dL (8.4-10.2) 01/21/20 13:15 Transferrin 231 mg/dL (177-329) 02/03/20 09:35 Total Bilirubin 0.3 mg/dL (0.0-1.0) 01/21/20 13:15 AST 27 U/L (10-37) 01/21/20 13:15 ALT 23 U/L (12-78) 01/21/20 13:15 Alkaline Phosphatase 95 U/L (46-116) 01/21/20 13:15 Total Protein 7.3 g/dL (6.4-8.3) 01/21/20 13:15 Albumin 3.2 g/dL (3.4-5.0) L 01/21/20 13:15 Triglycerides 112 mg/dL (30-150) 01/21/20 13:15 Cholesterol 206 mg/dL (<200) H 01/21/20 13:15 LDL Cholesterol 133 mg/dL (0-129) H 01/21/20 13:15 HDL Cholesterol 57 mg/dL (>45) 01/21/20 13:15 - Physical Exam Vitals and I&O: Vital Signs Temp 97.4 F 02/05/20 06:02 Pulse 59 02/05/20 06:02 Resp 20 02/05/20 08:00 BP 123/85 02/05/20 09:21 Pulse Ox 94 02/05/20 06:02 Intake & Output 02/04/20 02/05/20 02/05/20 18:59 06:59 18:59 Intake Total 1100 24 Balance 1100 24 Intake: Oral 1100 24 Other: # Voids 3 # Bowel Movements 0 0 Active Medications: Current Medications Cholecalciferol (Vitamin D3) 1,000 iu PO DAILY [facility] Stop: 03/21/20 08:59 Last Admin: 02/05/20 09:04 Dose: 1,000 iu Diazepam (Valium) 5 mg PO BID [facility]; Protocol Stop: 04/02/20 08:59 Last Admin: 02/05/20 09:04 Dose: 5 mg Furosemide (Lasix) 20 mg PO DAILY [facility] Stop: 03/21/20 08:59 Last Admin: 02/05/20 09:21 Dose: 20 mg Gabapentin (Neurontin) 100 mg PO TID [facility] Stop: 03/26/20 20:59 Last Admin: 02/05/20 14:24 Dose: Not Given Ibuprofen (Motrin) 600 mg PO Q4H PRN PRN Reason: Pain (Severe 7-10) Stop: 03/20/20 21:39 Last Admin: 02/04/20 09:44 Dose: 600 mg Olanzapine (Zyprexa) 15 mg PO HS [facility] Stop: 03/31/20 20:59 Last Admin: 02/04/20 21:27 Dose: 15 mg Oxybutynin Chloride (Ditropan Xl) 10 mg PO DAILY [facility] Stop: 03/21/20 08:59 Last Admin: 02/05/20 09:04 Dose: 10 mg Potassium Chloride (Klor-Con) 10 meq PO DAILY [facility] Stop: 03/21/20 08:59 Last Admin: 02/05/20 09:03 Dose: 10 meq Rivaroxaban (Xarelto) 20 mg PO DAILY [facility] Stop: 04/05/20 08:59 Last Admin: 02/05/20 09:16 Dose: 20 mg General: weak HEENT: NC/AT, PERRLA Neck: Supple Lungs: CTAB Cardiovascular: RRR, Normal S1, Normal S2 Abdomen: soft Extremities: clear Neurological: no change Internal Medicine Assmt/Plan - Assessment Assessment: 1. [place] 2. HTN 3. Hx of P.E. and DVT - Plan Plan: continue xeralto 20 mg po daily encourage p.o. intake d/w r.n. reviewed complete medical records Nutritional Asmnt/Malnutr-PDOC - Dietary Evaluation Malnutrition Findings (Please click <Entered> for more info): Nutritional Asmnt/Malnutrition Start: 01/26/20 12: 42 Text: Status: Complete Freq: Protocol: Document 01/26/20 12:42 JORDAN (Rec: 01/26/20 12:51 [email or web address] GILBERTO- [id number]) Nutritional Asmnt/Malnutrition Patient General Information Nutritional Screening Low Risk Diagnosis Psychosis Pertinent Medical Hx/Surgical Hx [place], Pulmonary embolism /DVT Subjective Information FNS providing patient with ~ 2300 kcal, 110gm protein; patient eating average 90% of meals, 2070 kcal, 99gm protein /day meeting 98% kcal, >100 protein goals. Tolerating current diet order with adequate intake. Current Diet Order/ Nutrition Support Regular Patient / S.O Not Indicated Pertinent Medications Vitamin D, lasix, Klor-con Pertinent Labs (01/20) K 3.3, Albumin 3.2, Cholesterol 206, LDL 133 Nutritional Hx/Data Height 1.8 m Height (Calculated Centimeters) 180.3 Current Weight (lbs) 99.79 kg Weight (Calculated Kilograms) 99.8 Weight (Calculated Grams) 09600.3 [place] Body Weight 172 % [place] Body Weight 128 Body Mass Index (BMI) 30.7 Recent Weight Change No Weight Status Obese GI Symptoms GI Symptoms None Last BM 01/23 x 1 Difficult in: None Food Allergies No Cultural/Ethnic/Mandaeism Belief none indicated Usual diet at home unknown Skin Integrity/Comment: [place] 13, intact Current %PO Good (75-100%) Estimated Nutritional Goals BEE in Kcals: Adj wt of IBW Calories/Kcals/Kg ADj BW 83.6kg Kcals Calculated ~3158-6160 kcal/day (25-30 kcal/kg) Protein: Adj wt of IBW Protein g/kg: (1 gm/kg) Protein Calculated ~85 gm/day Fluid: ml ~1011-8383 ml/day (1 ml/kcal) Nutritional Problem 1. Problem Problem Altered nutrition related lab values realted to Etiology electrolyte imbalance aeb Signs/Symptoms: K 3.3 Intervention/Recommendation Comments 1. Continue regular diet as tolerated by patient. Encourage intake of high potassium foods (tomatoes, potatoes, oranges/OJ, bananas, etc). MD continue replace K as needed. Expected Outcomes/Goals Expected Outcomes/Goals Oral intake >75% of meals, weight stable or trend toward IBW, nutrition related labs WNL F/U MR 01/28-01/30
[2020-02-06] MEDS: Oxybutynin Chloride 5 mg ER Tab PO SCH (10:00)
[2020-02-06] MEDS: Potassium Chloride 10 mEq ER Tab PO SCH (10:00)
--- NOTE | 2020-02-06 11:54 | Internal Medicine Prog Note ---
Internal Medicine Subjective - Subjective Service Date: 02/06/20 Patient seen and examined:: without staff (no fevers, no cough, no chest pain, no sob) Patient is:: awake Per staff patient has:: no adverse event, no episodes of fall Internal Medicine Objective - Results Result Diagrams: 01/21/20 13:15 01/21/20 13:15 Recent Labs: Laboratory Last Values WBC 6.7 K/uL (4.8-10.8) 01/21/20 13:15 RBC 4.91 MIL/uL (4.2-6.2) 01/21/20 13:15 Hgb 14.5 g/dL (14.0-18.0) 01/21/20 13:15 Hct 42.4 % (36-54) 01/21/20 13:15 MCV 86 fL (79.0-98.0) 01/21/20 13:15 MCH 30 pg (27-31) 01/21/20 13:15 MCHC 34 % (32-36) 01/21/20 13:15 RDW 14.3 % (9.0-15.0) 01/21/20 13:15 Plt Count 287 K/uL (130-430) 01/21/20 13:15 MPV 9.0 fl (7.4-10.4) 01/21/20 13:15 Neut % (Auto) 63.3 % (40-70) 01/21/20 13:15 Lymph % (Auto) 22.3 % (20.5-51.5) 01/21/20 13:15 [place] % (Auto) 12.3 % (1.7-9.3) H 01/21/20 13:15 Eos % (Auto) 1.2 % (0-4) 01/21/20 13:15 Baso % (Auto) 0.9 % (0.0-2.0) 01/21/20 13:15 Neut # (Auto) 4.2 K/uL (1.8-7.7) 01/21/20 13:15 Lymph # (Auto) 1.5 K/uL (1.0-5.5) 01/21/20 13:15 [place] # (Auto) 0.8 K/uL (0.0-1.0) 01/21/20 13:15 Eos # (Auto) 0.1 K/uL (0.0-0.4) 01/21/20 13:15 Baso # (Auto) 0.1 K/uL (0.0-0.2) 01/21/20 13:15 Sodium 137 mmol/L (136-145) 01/21/20 13:15 Potassium 3.3 mmol/L (3.5-5.1) L 01/21/20 13:15 Chloride 108 mmol/L (98-107) H 01/21/20 13:15 Carbon Dioxide 26 mmol/L (23-29) 01/21/20 13:15 Anion Gap 6 (5-15) 01/21/20 13:15 BUN 26 mg/dL (8-21) H 01/21/20 13:15 Creatinine 1.18 mg/dL (0.70-1.30) 01/21/20 13:15 Glucose 93 mg/dL (70-99) 01/21/20 13:15 Hemoglobin A1c 5.3 % (4.8-5.6) 01/21/20 13:15 Calcium 8.8 mg/dL (8.4-10.2) 01/21/20 13:15 Transferrin 231 mg/dL (177-329) 02/03/20 09:35 Total Bilirubin 0.3 mg/dL (0.0-1.0) 01/21/20 13:15 AST 27 U/L (10-37) 01/21/20 13:15 ALT 23 U/L (12-78) 01/21/20 13:15 Alkaline Phosphatase 95 U/L (46-116) 01/21/20 13:15 Total Protein 7.3 g/dL (6.4-8.3) 01/21/20 13:15 Albumin 3.2 g/dL (3.4-5.0) L 01/21/20 13:15 Triglycerides 112 mg/dL (30-150) 01/21/20 13:15 Cholesterol 206 mg/dL (<200) H 01/21/20 13:15 LDL Cholesterol 133 mg/dL (0-129) H 01/21/20 13:15 HDL Cholesterol 57 mg/dL (>45) 01/21/20 13:15 - Physical Exam Vitals and I&O: Vital Signs Temp 96.7 F 02/06/20 05:56 Pulse 77 02/06/20 05:56 Resp 20 02/06/20 08:00 BP 126/83 02/06/20 10:00 Pulse Ox 92 02/06/20 05:56 Active Medications: Current Medications Cholecalciferol (Vitamin D3) 1,000 iu PO DAILY [facility] Stop: 03/21/20 08:59 Last Admin: 02/06/20 10:00 Dose: 1,000 iu Diazepam (Valium) 5 mg PO BID [facility]; Protocol Stop: 04/02/20 08:59 Last Admin: 02/06/20 10:00 Dose: 5 mg Furosemide (Lasix) 20 mg PO DAILY [facility] Stop: 03/21/20 08:59 Last Admin: 02/06/20 10:00 Dose: 20 mg Gabapentin (Neurontin) 100 mg PO TID [facility] Stop: 03/26/20 20:59 Last Admin: 02/06/20 10:00 Dose: 100 mg Ibuprofen (Motrin) 600 mg PO Q4H PRN PRN Reason: Pain (Severe 7-10) Stop: 03/20/20 21:39 Last Admin: 02/04/20 09:44 Dose: 600 mg Olanzapine (Zyprexa) 15 mg PO HS [facility] Stop: 03/31/20 20:59 Last Admin: 02/05/20 20:12 Dose: 15 mg Oxybutynin Chloride (Ditropan Xl) 10 mg PO DAILY [facility] Stop: 03/21/20 08:59 Last Admin: 02/06/20 10:00 Dose: 10 mg Potassium Chloride (Klor-Con) 10 meq PO DAILY [facility] Stop: 03/21/20 08:59 Last Admin: 02/06/20 10:00 Dose: 10 meq Rivaroxaban (Xarelto) 20 mg PO DAILY [facility] Stop: 04/05/20 08:59 Last Admin: 02/06/20 10:00 Dose: 20 mg General: weak HEENT: NC/AT, PERRLA Neck: Supple Lungs: CTAB Cardiovascular: RRR, Normal S1, Normal S2 Abdomen: soft Extremities: clear Neurological: no change Internal Medicine Assmt/Plan - Assessment Assessment: 1. [place] 2. HTN 3. Hx of P.E. and DVT - Plan Plan: continue xeralto 20 mg po daily encourage p.o. intake d/w r.n. reviewed complete medical records Nutritional Asmnt/Malnutr-PDOC - Dietary Evaluation Malnutrition Findings (Please click <Entered> for more info): Nutritional Asmnt/Malnutrition Start: 01/26/20 12: 42 Text: Status: Complete Freq: Protocol: Document 01/26/20 12:42 JORDAN (Rec: 01/26/20 12:51 [email or web address] [email or web address]- [id number]) Nutritional Asmnt/Malnutrition Patient General Information Nutritional Screening Low Risk Diagnosis Psychosis Pertinent Medical Hx/Surgical Hx [place], Pulmonary embolism /DVT Subjective Information FNS providing patient with ~ 2300 kcal, 110gm protein; patient eating average 90% of meals, 2070 kcal, 99gm protein /day meeting 98% kcal, >100 protein goals. Tolerating current diet order with adequate intake. Current Diet Order/ Nutrition Support Regular Patient / S.O Not Indicated Pertinent Medications Vitamin D, lasix, Klor-con Pertinent Labs (01/20) K 3.3, Albumin 3.2, Cholesterol 206, LDL 133 Nutritional Hx/Data Height 1.8 m Height (Calculated Centimeters) 180.3 Current Weight (lbs) 99.79 kg Weight (Calculated Kilograms) 99.8 Weight (Calculated Grams) 92213.3 [place] Body Weight 172 % [place] Body Weight 128 Body Mass Index (BMI) 30.7 Recent Weight Change No Weight Status Obese GI Symptoms GI Symptoms None Last BM 01/23 x 1 Difficult in: None Food Allergies No Cultural/Ethnic/Jainism Belief none indicated Usual diet at home unknown Skin Integrity/Comment: [place] 13, intact Current %PO Good (75-100%) Estimated Nutritional Goals BEE in Kcals: Adj wt of IBW Calories/Kcals/Kg ADj BW 83.6kg Kcals Calculated ~3235-3316 kcal/day (25-30 kcal/kg) Protein: Adj wt of IBW Protein g/kg: (1 gm/kg) Protein Calculated ~85 gm/day Fluid: ml ~1711-5061 ml/day (1 ml/kcal) Nutritional Problem 1. Problem Problem Altered nutrition related lab values realted to Etiology electrolyte imbalance aeb Signs/Symptoms: K 3.3 Intervention/Recommendation Comments 1. Continue regular diet as tolerated by patient. Encourage intake of high potassium foods (tomatoes, potatoes, oranges/OJ, bananas, etc). MD continue replace K as needed. Expected Outcomes/Goals Expected Outcomes/Goals Oral intake >75% of meals, weight stable or trend toward IBW, nutrition related labs WNL F/U MR 01/28-01/30
[2020-02-07] MEDS: Oxybutynin Chloride 5 mg ER Tab PO SCH (09:02)
[2020-02-07] MEDS: Potassium Chloride 10 mEq ER Tab PO SCH (09:02)
== END 2020-02-07 12:00 | disposition left against medical advice (07) | DRG 884 ==
LOC: GERO 16:11
PROVIDERS: ADMIT Psychiatry & Neurology Psychiatry; ATTEND Psychiatry & Neurology Psychiatry
DX: F03.91 Unspecified dementia, unspecified severity, with behavioral disturbance (principal); G10 Huntington's disease; F29 Unspecified psychosis not due to a substance or known physiological condition; J45.909 Unspecified asthma, uncomplicated; I10 Essential (primary) hypertension; N40.0 Benign prostatic hyperplasia without lower urinary tract symptoms; Z86.711 Personal history of pulmonary embolism; Z88.8 Allergy status to other drugs, medicaments and biological substances; Z86.718 Personal history of other venous thrombosis and embolism; Z53.29 Procedure and treatment not carried out because of patient's decision for other reasons
CPT/HCPCS: 36415-UA; 80053-TC; 80061-TC; 83036-90; 84466-90; 85025-TC; 90899; 97530; G0410; J7051; U0003-CS; X3904; Z7610